=== PATIENT | male | born 1965 | race Hispanic/Latino ===

== ENCOUNTER 2018-05-20 18:13 | Emergency (ER) | payer BC, OTHER ==
[2018-05-20] MEDS ORDERED: TETANUS & DIPHTHERIA TOX,ADULT 0.5 ML VIAL ONE (19:31)
[2018-05-20] MEDS ORDERED: CLINDAMYCIN HCL 150 MG CAP ONE (20:11)
--- NOTE | 2018-05-20 20:34 | ER ---
Nurse's Notes [facility] Name: Marcelo Ramirez Age: 53 yrs Sex: Male : 1965 Arrival Date: 05/20/2018 Time: 18:17 Bed 27 Private MD: None, None Diagnosis: Laceration of extensor muscle, fascia and tendon of right middle finger at wrist and hand level-Infected Presentation: 05/20 19:04 Presenting complaint: Patient states: Patient hit a window one week ago and the aj1 swelling to his right hand has just gotten worse. Redness and swelling noted to right hand. Patient's states that it has been draining purulent drainage. Denies fever. Transition of care: patient was not received from another setting of care. Onset of symptoms was May 13, 2018. Risk Assessment: Do you want to hurt yourself or someone else? Patient reports no desire to harm self or others. Initial Sepsis Screen: Does the patient meet any 2 criteria? No. Patient's initial sepsis screen is negative. Does the patient have a suspected source of infection? No. Patient's initial sepsis screen is negative. Care prior to arrival: None. 19:04 Method Of Arrival: Ambulatory aj1 19:04 Acuity: BROOKE 3 aj1 Triage Assessment: 19:06 General: Appears in no apparent distress. uncomfortable, Behavior is calm, cooperative, aj1 appropriate for age. Pain: Complains of pain in right hand Pain currently is 7 out of 10 on a pain scale. Neuro: Level of Consciousness is awake, alert, obeys commands. Cardiovascular: Patient's skin is warm and dry. Respiratory: Airway is patent Respiratory effort is even, unlabored, Respiratory pattern is regular, symmetrical. Historical: - Allergies: 19:06 No Known Allergies; aj1 - Home Meds: 19:06 None [Active]; aj1 - PMHx: 19:06 COPD; aj1 - Immunization history:: Last tetanus immunization: unknown. - Social history:: Smoking status: Patient/guardian denies using tobacco. - Ebola Screening: : Patient denies travel to an Ebola-affected area in the 21 days before illness onset. Screenin:33 Abuse screen: Denies threats or abuse. Denies injuries from another. Nutritional rv screening: No deficits noted. Tuberculosis screening: No symptoms or risk factors identified. Fall Risk None identified. Assessment: 19:32 General: Appears in no apparent distress. comfortable, Behavior is calm, cooperative. rv Pain: Complains of pain in right hand. Neuro: Level of Consciousness is awake, alert, obeys commands, Oriented to person, place, time, situation. Cardiovascular: Capillary refill < 3 seconds. Respiratory: Airway is patent. GI: No signs and/or symptoms were reported involving the gastrointestinal system. : No signs and/or symptoms were reported regarding the genitourinary system. EENT: No signs and/or symptoms were reported regarding the EENT system. Derm: Wound noted right hand. Musculoskeletal: No signs and/or symptoms reported regarding the musculoskeletal system. 21:03 Reassessment: AWAITING CD COPY OF XRAY. rv Vital Signs: 19:06 BP 109 / 80; Pulse 103; Resp 20; Temp 99.0(TE); Pulse Ox 96% on R/A; Weight 83.91 kg aj1 (R); Height 5 ft. 7 in. (170.18 cm) (R); Pain 7/10; 20:58 BP 124 / 81; Pulse 74; Pulse Ox 97% on R/A; rv 19:06 Body Mass Index 28.97 (83.91 kg, 170.18 cm) aj1 ED Course: 18:17 Patient arrived in ED. sb2 18:18 None, None is Private Physician. sb2 19:06 Triage completed. aj1 19:06 Arm band placed on Patient placed in an exam room. aj1 19:11 Sam Camacho PA is PHCP. cp 19:11 Peng Chavez MD is Attending Physician. cp 19:33 Patient has correct armband on for positive identification. Bed in low position. Call rv light in reach. Side rails up X 1. Adult w/ patient. Pulse ox on. NIBP on. 20:12 XRAY Hand RIGHT 3 View Sent. rv 20:12 Wound Culture Sent. rv 20:13 Awaiting for x-ray. rv 20:31 XRAY Hand RIGHT 3 View In Process Unspecified. EDMS 20:33 Pb Young MD is Referral Physician. cp 20:59 Wound care: to open wound located on right hand was cleaned with with BENNIE HEX4, rv irrigated with normal saline, dressed with Patient tolerated well. 21:03 No provider procedures requiring assistance completed. Patient did not have IV access rv during this emergency room visit. 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 Exp: rv 06/27/2020. Lot #: [id number]. } Route: IM; Site: right deltoid; 21:06 Follow up: Response: No adverse reaction rv 20:12 Drug: Clindamycin 300 mg Route: PO; rv 21:06 Follow up: Response: Medication administered at discharge. rv Outcome: 20:34 Discharge ordered by MD. cp 21:03 Discharged to home ambulatory. rv 21:03 Condition: good 21:03 Discharge instructions given to patient, Instructed on discharge instructions, follow up and referral plans. medication usage, Prescriptions given X 1. 21:06 Patient left the ED. rv Addendum: 05/24/2018 09:55 Addendum: Culture Results: Positive wound culture. Phone call Attempt #1 Spoke to ferdinand Robertson at [phone] Prescription called-in to pharmacy of choice. Bactrim DS PO BID x 1-0 days at [facility]. Signatures: Dispatcher [employer] EDMS Pratima Weiss RN RN aj1 Sam Camacho PA PA Iveht Landry, RN RN Chandrika Gibbs sb2 Adán Rand RN RN rv
--- NOTE | 2018-05-20 20:34 | EDPHYS ---
Physician Documentation [facility] Name: Marcelo Ramirez Age: 53 yrs Sex: Male : 1965 Arrival Date: 05/20/2018 Time: 18:17 Bed 27 Private MD: None, None ED Physician Peng Chavez HPI: 05/20 19:22 This 53 yrs old Male presents to ER via Ambulatory with complaints of Wound On cp Hand-Won't Heal. 19:22 The patient or guardian reports a laceration, swelling, tenderness, erythema. cp 19:22 The complaints affect the MCP of right middle finger. Context: resulted from punching cp window. Onset: The symptoms/episode began/occurred 1 week(s) ago. Associated signs and symptoms: Pertinent negatives: cyanosis distally, decreased sensation distally, fever. Historical: - Allergies: 19:06 No Known Allergies; aj1 - Home Meds: 19:06 None [Active]; aj1 - PMHx: 19:06 COPD; aj1 - Immunization history:: Last tetanus immunization: unknown. - Social history:: Smoking status: Patient/guardian denies using tobacco. - Ebola Screening: : Patient denies travel to an Ebola-affected area in the 21 days before illness onset. ROS: 19:30 Constitutional: Negative for body aches, chills, fever, poor PO intake. cp 19:30 Eyes: Negative for injury, pain, redness, and discharge. cp 19:30 Cardiovascular: Negative for chest pain, palpitations. 19:30 Respiratory: Negative for cough, shortness of breath, wheezing. 19:30 Abdomen/GI: Negative for abdominal pain, nausea, vomiting, and diarrhea, black/tarry stool, rectal bleeding. 19:30 Skin: Positive for erythema, laceration(s), swelling, of the MCP of right middle finger. 19:30 Neuro: Negative for numbness, tingling. 19:30 All other systems are negative. Exam: 19:35 Constitutional: The patient appears in no acute distress, alert, awake, non-toxic, well cp developed, well nourished. 19:35 Head/Face: Normocephalic, atraumatic. cp 19:35 Eyes: Periorbital structures: appear normal, Conjunctiva: normal, no exudate, no injection, Lids and lashes: appear normal, bilaterally. 19:35 ENT: External ear(s): are unremarkable, Nose: is normal, Mouth: is normal, Posterior pharynx: is normal, airway is patent. 19:35 Chest/axilla: Inspection: normal. 19:35 Cardiovascular: Rate: tachycardic, Rhythm: regular. 19:35 Respiratory: the patient does not display signs of respiratory distress, Respirations: normal, no use of accessory muscles, no retractions, no splinting, no tachypnea. 19:35 Abdomen/GI: Inspection: abdomen appears normal. 19:35 Musculoskeletal/extremity: Perfusion: the extremity is normally perfused throughout, Sensation intact. Tendon exam: postive for patient unable to fully extend middle digit of right hand. 19:35 Skin: injury, laceration(s), the wound is approximately 2 cm(s), of the MCP of right middle finger, that can be described as linear, without bleeding, mild erythema, mild swelling. Vital Signs: 19:06 BP 109 / 80; Pulse 103; Resp 20; Temp 99.0(TE); Pulse Ox 96% on R/A; Weight 83.91 kg aj1 (R); Height 5 ft. 7 in. (170.18 cm) (R); Pain 7/10; 20:58 BP 124 / 81; Pulse 74; Pulse Ox 97% on R/A; rv 19:06 Body Mass Index 28.97 (83.91 kg, 170.18 cm) aj1 MDM: 19:11 Patient medically screened. cp 19:30 Differential diagnosis: dislocation, open fracture, closed fracture, tendon rupture, cp cellulitis, abscess. 20:33 Data reviewed: vital signs, nurses notes, radiologic studies, plain films, and as a cp result, I will discharge patient. 20:33 Test interpretation: by ED physician or midlevel provider: plain radiologic studies. cp Counseling: I had a detailed discussion with the patient and/or guardian regarding: the historical points, exam findings, and any diagnostic results supporting the discharge/admit diagnosis, the need for outpatient follow up, a hand specialist, to return to the emergency department if symptoms worsen or persist or if there are any questions or concerns that arise at home. 05/20 19:57 Order name: Wound Culture cp 05/20 19:23 Order name: XRAY Hand RIGHT 3 View; Complete Time: 20:57 cp 05/20 20:57 Interpretation: Report reviewed. 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 Exp: rv 06/27/2020. Lot #: [id number]. } Route: IM; Site: right deltoid; 21:06 Follow up: Response: No adverse reaction 20:12 Drug: Clindamycin 300 mg Route: PO; rv 21:06 Follow up: Response: Medication administered at discharge. Disposition: 05/21 04:38 Co-signature as Attending Physician, Peng Chavez MD. Disposition: 05/20/18 20:34 Discharged to Home. Impression: Laceration of extensor muscle, fascia and tendon of right middle finger at wrist and hand level - Infected. - Condition is Stable. - Discharge Instructions: Cellulitis, Adult, Laceration Care, Adult, Nonsutured Laceration Care. - Prescriptions for Clindamycin HCl 300 mg Oral Capsule - take 1 capsule by ORAL route every 6 hours for 10 days; 40 capsule. - Medication Reconciliation Form, Thank You Letter, Antibiotic Education, Prescription Opioid Use form. - Follow up: Pb Young MD; When: 1 - 2 days; Reason: Wound Recheck. - Problem is new. - Symptoms have improved. Signatures: Dispatcher [employer] EDIL Pratima Weiss RN RN aj1 Sam Camacho PA PA Peng Chavez MD MD Adán Rand RN RN rv Corrections: (The following items were deleted from the chart) 05/20 21:06 20:34 05/20/2018 20:34 Discharged to Home. Impression: Laceration of extensor muscle, rv fascia and tendon of right middle finger at wrist and hand level - Infected. Condition is Stable. Forms are Medication Reconciliation Form, Thank You Letter, Antibiotic Education, Prescription Opioid Use. Follow up: Pb Young; When: 1 - 2 days; Reason: Wound Recheck. Problem is new. Symptoms have improved. cp
--- NOTE | 2018-05-20 20:53 | RAD REPORT ---
EXAM DESCRIPTION: RAD - Hand Right 3 View - 05/20/2018 8:31 pm CLINICAL HISTORY: Hand trauma 1 week earlier, increasing swelling, draining wound COMPARISON: None. FINDINGS: No fracture is identified. There is no dislocation or periosteal reaction noted. Soft tis clifford wound is evident dorsum of the hand at the MCP joint spur. No foreign body. No suspicious air in the soft tissues. IMPRESSION: No acute bone or joint finding. No foreign body.
[2018-05-20 21:30] VITALS: TEMP 99
[2018-05-20 21:31] VITALS: BP 124/81; O2SAT 97
== END 2018-05-20 21:06 | disposition home or self-care (01) ==
LOC: ER 18:13
DX: S66.322A Laceration of extensor muscle, fascia and tendon of right middle finger at wrist and hand level, initial encounter (principal); L08.9 Local infection of the skin and subcutaneous tissue, unspecified; J44.9 Chronic obstructive pulmonary disease, unspecified; Z23 Encounter for immunization
CPT/HCPCS: 87070; 87077; 87186; 87205; 90714; 99284

== ENCOUNTER 2018-10-01 02:40 | Emergency (ER) | payer BC ==
--- OUTSIDE RECORDS SUMMARY | 2018-10-01 02:42 | XMS REPORT | Clinical Summary ---
:1965 Author Organization [facility] Address [address] [place] [address] Care Team Providers Name Role Phone Asked, No Pcp Primary Care Provider Unavailable Allergies No Known Allergies Medications No known medications Active Problems Not on file Encounters Date Type Specialty Care Team Description 05/29/2018 Office Visit Orthopedic Surgery [place] [facility], Laceration of hand MD involving extensor tendon, unspecified laterality, sequela (Primary Dx) after 09/30/2017 Social History Tobacco Use Types Packs/Day Years Used Date Never Assessed Sex Assigned at Date Recorded Not on file Job Start Date Occupation Industry Not on file Not on file Not on file Travel History Travel Start Travel End No recent travel history available. Last Filed Vital Signs Not on file Plan of Treatment Health Maintenance Due Date Last Done Comments COLON CANCER SCREENING 02/24/2016 SHINGLES VACCINES (1 of 2) 02/24/2016 INFLUENZA VACCINE 05/09/2018 Results Not on fileafter 09/30/2017 Insurance Payer Benefit Plan / Group Subscriber ID Type Phone Address BCBS BCBS CHOICE PPO/F[employer]ERAL EMPL PPO xxxxxxxxxxxx PPO Advance Directives Patient has advance care planning documents on file. For more information, please contact:[facility] [place] [address]
[2018-10-01] MEDS ORDERED: IBUPROFEN 400 MG TAB ONE (03:27)
[2018-10-01] MEDS ORDERED: IBUPROFEN 200 MG TAB PO ONE (03:28)
[2018-10-01] MEDS ORDERED: NA CHLORIDE 0.9% 1,000 ML ONE (03:28)
[2018-10-01 03:29] LABS: Absolute Lymphocytes (CBC) 1.2 K/uL (0.7-4.9); Absolute Monocytes 1.2 K/uL (0.1-1.3); Absolute Neutrophil 15.9 K/uL (1.8-8.0); Basophils % 0.2 % (0-1.3); Hematocrit 46.5 % (39.6-49.0); Lymphocytes % 6.4 % (15.3-44.8); Monocytes % 6.5 % (3.3-12.3); RBC Red Blood Cell Count 5.19 M/uL (4.33-5.43)
[2018-10-01 03:37] LABS: Potassium 3.8 mmol/L (3.5-5.1)
[2018-10-01 03:48] LABS: Blood Morphology Comment NOT SEEN (NOT SEEN); Platelet Estimate ADEQ; Urine White Blood Cell Casts OK
--- NOTE | 2018-10-01 04:44 | ER ---
Nurse's Notes [facility] Name: Marcelo Ramirez Age: 53 yrs Sex: Male : 1965 Arrival Date: 10/01/2018 Time: 02:44 Bed 16 Private MD: Diagnosis: Acute pharyngitis. Leukocytosis Presentation: 10/01 02:56 Presenting complaint: Patient states: having flu like symptoms body ache, sore throat, rr5 headache, started last Monday but it got worsen yesterday. no cough, no nausea and vomting. Transition of care: patient was not received from another setting of care. Onset of symptoms was September 29, 2018. Risk Assessment: Do you want to hurt yourself or someone else? Patient reports no desire to harm self or others. Initial Sepsis Screen: Does the patient meet any 2 criteria? No. Patient's initial sepsis screen is negative. Does the patient have a suspected source of infection? No. Patient's initial sepsis screen is negative. Care prior to arrival: Medication(s) given: dayquil and cold and flu medication. 02:56 Method Of Arrival: Ambulatory rr5 02:56 Acuity: BROOKE 3 rr5 Triage Assessment: 03:02 General: Appears in no apparent distress. uncomfortable, Behavior is calm, cooperative, rr5 appropriate for age. Pain: Complains of pain in head, throat and body Pain does not radiate. Pain currently is 8 out of 10 on a pain scale. Quality of pain is described as aching, Pain began gradually, Is intermittent. EENT: Throat is reddened. Neuro: Level of Consciousness is awake, alert, obeys commands, Oriented to person, place, time, situation. Cardiovascular: Capillary refill < 3 seconds Patient's skin is warm and dry. Rhythm is sinus tachycardia. Respiratory: Airway is patent Respiratory effort is even, unlabored, Respiratory pattern is regular, symmetrical, hoarseness of voice noted. GI: No signs and/or symptoms were reported involving the gastrointestinal system. : No signs and/or symptoms were reported regarding the genitourinary system. Derm: Skin is intact, Skin temperature is warm. Musculoskeletal: Reports pain in head, throat,body. Historical: - Allergies: 03:00 No Known Allergies; rr5 - Home Meds: 03:00 None [Active]; rr5 - PMHx: 03:00 COPD; rr5 - PSHx: 03:00 None; rr5 - Immunization history:: Adult Immunizations up to date, Flu vaccine is not up to date. - Social history:: Smoking status: Patient/guardian denies using tobacco, Patient uses alcohol, Patient/guardian denies using street drugs. - Ebola Screening: : Patient negative for fever greater than or equal to 101.5 degrees Fahrenheit, and additional compatible Ebola Virus Disease symptoms Patient denies exposure to infectious person Patient denies travel to an Ebola-affected area in the 21 days before illness onset. Screenin:01 Abuse screen: Denies threats or abuse. Denies injuries from another. Nutritional rr5 screening: No deficits noted. Tuberculosis screening: No symptoms or risk factors identified. 03:01 Fall Risk IV access (20 points). Total Leigh Fall Scale indicates No Risk (0-24 pts). rr5 Assessment: 03:15 General: see triage assessment. rr5 04:30 Reassessment: Patient appears in no apparent distress at this time. Patient and/or rr5 family updated on plan of care and expected duration. Pain level reassessed. no complaints made. asleep on bed Patient states symptoms have improved. 05:00 Reassessment: Patient appears in no apparent distress at this time. Patient and/or rr5 family updated on plan of care and expected duration. Pain level reassessed. discharge instruction and prescription given and explained without complaints made. Patient states feeling better. Patient states symptoms have improved. Vital Signs: 02:59 BP 143 / 91; Pulse 108; Resp 20; Temp 98.4; Pulse Ox 98% ; Weight 89.36 kg; Height 5 rr5 ft. 7 in. (170.18 cm); Pain 8/10; 03:30 BP 145 / 89; Pulse 99; Resp 18; Pulse Ox 99% ; rr5 04:28 BP 134 / 85; Pulse 79; Resp 18; Temp 99.6; Pulse Ox 99% ; rr5 02:59 Body Mass Index 30.85 (89.36 kg, 170.18 cm) rr5 ED Course: 02:44 Patient arrived in ED. am2 02:48 Shamir Gutierrez MD is Attending Physician. pkl 02:50 Nata Domingo is Primary Nurse. cc3 02:59 Triage completed. rr5 03:01 Arm band placed on. rr5 03:15 Patient has correct armband on for positive identification. Bed in low position. Call rr5 light in reach. Side rails up X 1. 03:15 Pulse ox on. NIBP on. rr5 03:15 Inserted saline lock: 20 gauge in left forearm, using aseptic technique. Blood rr5 collected. 03:55 Vinicio Dos Santos, RN is Primary Nurse. rr5 05:02 No provider procedures requiring assistance completed. rr5 05:17 IV discontinued, intact, bleeding controlled, No redness/swelling at site. Pressure rr5 dressing applied. Administered Medications: 03:15 Drug: Motrin 600 mg Route: PO; rr5 04:31 Follow up: Response: No adverse reaction rr5 03:21 Drug: NS 0.9% 1000 ml Route: IV; Rate: 1000 ml; Site: left forearm; rr5 04:30 Follow up: Response: No adverse reaction; IV Status: Completed infusion; IV Intake: rr5 1000ml 04:45 Drug: Rocephin - (cefTRIAXone) 1 grams Route: IVPB; Infused Over: 30 mins; Site: left rr5 forearm; 05:16 Follow up: Response: No adverse reaction; IV Status: Completed infusion rr5 Intake: 04:30 IV: 1000ml; Total: 1000ml. rr5 Outcome: 04:43 Discharge ordered by . pkcarmita 05:17 Discharged to home ambulatory. rr5 05:17 Condition: stable 05:17 Discharge instructions given to patient, Instructed on discharge instructions, follow up and referral plans. medication usage, Demonstrated understanding of instructions, follow-up care, medications, Prescriptions given X 1. 05:18 Patient left the ED. rr5 Signatures: Shamir Gutierrez MD MD pkPhuong Stephens am2 Nata Domingo 3 Vinicio Dos Santos, RN RN rr5
--- NOTE | 2018-10-01 04:45 | EDPHYS ---
Physician Documentation [facility] Name: Marcelo Ramirez Age: 53 yrs Sex: Male : 1965 Arrival Date: 10/01/2018 Time: 02:44 Bed 16 Private MD: ED Physician Shamir Gutierrez HPI: 10/01 03:08 This 53 yrs old Male presents to ER via Ambulatory with complaints of Flu pkl Symptoms. 03:08 Onset: The symptoms/episode began/occurred 2 day(s) ago, and became worse today. pkl Patient has fever, headache, sore throat and bodyache. Historical: - Allergies: 03:00 No Known Allergies; rr5 - Home Meds: 03:00 None [Active]; rr5 - PMHx: 03:00 COPD; rr5 - PSHx: 03:00 None; rr5 - Immunization history:: Adult Immunizations up to date, Flu vaccine is not up to date. - Social history:: Smoking status: Patient/guardian denies using tobacco, Patient uses alcohol, Patient/guardian denies using street drugs. - Ebola Screening: : Patient negative for fever greater than or equal to 101.5 degrees Fahrenheit, and additional compatible Ebola Virus Disease symptoms Patient denies exposure to infectious person Patient denies travel to an Ebola-affected area in the 21 days before illness onset. ROS: 03:08 Eyes: Negative for injury, pain, redness, and discharge. pkl 03:08 ENT: Positive for sore throat. 03:08 Neck: Negative for stiffness. 03:08 Cardiovascular: Negative for chest pain. 03:08 Respiratory: Negative for cough, shortness of breath. 03:08 Abdomen/GI: Negative for abdominal pain, nausea, vomiting, and diarrhea. 03:08 Back: Negative for 03:08 : Negative for urinary symptoms. 03:08 MS/extremity: Negative for acute changes. 03:08 Skin: Negative for rash. 03:08 Neuro: Negative for altered mental status, loss of consciousness. Exam: 03:08 Head/Face: Normocephalic, atraumatic. Eyes: Pupils equal round and reactive to light, pkl extra-ocular motions intact. Lids and lashes normal. Conjunctiva and sclera are non-icteric and not injected. Cornea within normal limits. Periorbital areas with no swelling, redness, or edema. 03:08 ENT: Posterior pharynx: erythema, that is mild. 03:08 Neck: Exam negative for nuchal rigidity. 03:08 Chest/axilla: Exam negative for acute changes. 03:08 Cardiovascular: Rate: tachycardic, actual rate is 108 bpm, Rhythm: regular. 03:08 Respiratory: the patient does not display signs of respiratory distress, Respirations: normal, Breath sounds: are clear throughout. 03:08 Abdomen/GI: Bowel sounds: normal, Palpation: abdomen is soft and non-tender, in all quadrants. 03:08 Back: Exam negative for acute changes. 03:08 : Exam negative for acute changes. 03:08 Musculoskeletal/extremity: Exam is negative for acute changes. 03:08 Skin: Exam negative for rash. 03:08 Neuro: Orientation: is normal, Mentation: is normal, Cranial nerves: grossly normal, Motor: is normal. Vital Signs: 02:59 BP 143 / 91; Pulse 108; Resp 20; Temp 98.4; Pulse Ox 98% ; Weight 89.36 kg; Height 5 rr5 ft. 7 in. (170.18 cm); Pain 8/10; 03:30 BP 145 / 89; Pulse 99; Resp 18; Pulse Ox 99% ; rr5 04:28 BP 134 / 85; Pulse 79; Resp 18; Temp 99.6; Pulse Ox 99% ; rr5 02:59 Body Mass Index 30.85 (89.36 kg, 170.18 cm) rr5 MDM: 02:48 Patient medically screened. pkl 04:41 Data reviewed: vital signs, nurses notes, lab test result(s). pkl 10/01 03:06 Order name: CBC with Diff; Complete Time: 04:27 pkl 10/01 03:06 Order name: Chem 7; Complete Time: 03:42 pkl 10/01 03:06 Order name: Flu; Complete Time: 04:27 pkl 10/01 03:06 Order name: Strep; Complete Time: 04:27 pkl 10/01 03:46 Order name: Throat Culture EDMS 10/01 03:48 Order name: CBC Smear Scan; Complete Time: 04:28 EDMS Administered Medications: 03:15 Drug: Motrin 600 mg Route: PO; rr5 04:31 Follow up: Response: No adverse reaction rr5 03:21 Drug: NS 0.9% 1000 ml Route: IV; Rate: 1000 ml; Site: left forearm; rr5 04:30 Follow up: Response: No adverse reaction; IV Status: Completed infusion; IV Intake: rr5 1000ml 04:45 Drug: Rocephin - (cefTRIAXone) 1 grams Route: IVPB; Infused Over: 30 mins; Site: left rr5 forearm; 05:16 Follow up: Response: No adverse reaction; IV Status: Completed infusion rr5 Disposition: 10/01/18 04:43 Discharged to Home. Impression: Acute pharyngitis. Leukocytosis. - Condition is Stable. - Prescriptions for Augmentin 875- 125 mg Oral Tablet - take 1 tablet by ORAL route every 12 hours for 7 days; 14 tablet. - Medication Reconciliation Form, Thank You Letter, Antibiotic Education, Prescription Opioid Use form. - Follow up: Private Physician; When: 2 - 3 days; Reason: Re-evaluation by your physician. - Problem is new. - Symptoms have improved. Signatures: Dispatcher [employer] EDNE Shamir Gutierrez MD MD pkl Sharmin Watson RN RN Vinicio Dos Santos RN RN rr5 Corrections: (The following items were deleted from the chart) 05:18 04:43 10/01/2018 04:43 Discharged to Home. Impression: Acute pharyngitis. Leukocytosis. rr5 Condition is Stable. Forms are Medication Reconciliation Form, Thank You Letter, Antibiotic Education, Prescription Opioid Use. Follow up: Private Physician; When: 2 - 3 days; Reason: Re-evaluation by your physician. Problem is new. Symptoms have improved. pkl
[2018-10-01] MEDS ORDERED: CEFTRIAXONE/SWI 1gm 1 GM/10 ML SYR ONE (04:50)
[2018-10-01 05:30] VITALS: O2SAT 99
[2018-10-01 05:31] VITALS: BP 134/85; TEMP 99.6
== END 2018-10-01 05:18 | disposition home or self-care (01) ==
LOC: ER 02:40
DX: J02.9 Acute pharyngitis, unspecified (principal); D72.829 Elevated white blood cell count, unspecified
CPT/HCPCS: 36415; 80048; 85025; 87070; 87081; 87804; 96361; 96365; 99284; J0696; J7030

== ENCOUNTER 2021-04-01 16:30 | Emergency (ER) | payer BC, OTHER ==
--- NOTE | 2021-04-01 19:28 | ER ---
Nurse's Notes [facility] Name: Marcelo Ramirez Age: 56 yrs Sex: Male : 1965 Arrival Date: 04/01/2021 Time: 16:35 Bed 12 Private MD: Diagnosis: Acute serous otitis media Presentation: 04/01 16:43 Chief complaint: Patient states: "My left ear is all swollen and leaking fluid and I jd3 get this sharp pains.". Coronavirus screen: At this time, the client does not indicate any symptoms associated with coronavirus-19. Ebola Screen: Patient negative for fever greater than or equal to 101.5 degrees Fahrenheit, and additional compatible Ebola Virus Disease symptoms. Initial Sepsis Screen: Does the patient meet any 2 criteria? No. Patient's initial sepsis screen is negative. Does the patient have a suspected source of infection? No. Patient's initial sepsis screen is negative. Risk Assessment: Do you want to hurt yourself or someone else? Patient reports no desire to harm self or others. Onset of symptoms was March 29, 2021. 16:43 Method Of Arrival: Ambulatory jd3 16:43 Acuity: BROOKE 4 jd3 Historical: - Allergies: 16:45 No Known Allergies; jd3 - Home Meds: 16:45 None [Active]; jd3 - PMHx: 16:45 COPD; jd3 - PSHx: 16:45 None; jd3 - Immunization history:: Adult Immunizations unknown, Client reports having NOT received the Covid vaccine. - Social history:: Smoking status: Patient/guardian denies using tobacco, the patient reports quitting approximately 9 years ago. Screenin:48 Abuse screen: Denies threats or abuse. Denies injuries from another. Nutritional ss screening: No deficits noted. Tuberculosis screening: Never had TB. Fall Risk None identified. Assessment: 18:48 General: Appears in no apparent distress. comfortable, Behavior is calm, cooperative, ss Denies fever, feeling ill, fatigue, chills. Pain: Complains of pain in left ear Pain currently is 5 out of 10 on a pain scale. at worst was 8 out of 10 on a pain scale. Quality of pain is described as sharp, Pain began 4 days ago Is episodic. Neuro: Level of Consciousness is awake, alert, obeys commands, Oriented to person, place, time, situation, Speech is normal. Cardiovascular: Capillary refill < 3 seconds is brisk in bilateral fingers Patient's skin is warm and dry. Respiratory: Airway is patent Respiratory effort is even, unlabored, Respiratory pattern is regular, symmetrical. GI: Patient currently denies diarrhea, nausea, vomiting. EENT: Throat is clear. Derm: Skin is intact, is healthy with good turgor, Skin is dry, Skin is pink, warm \\T\\ dry. normal. Musculoskeletal: Circulation, motion, and sensation intact. Range of motion: intact in all extremities, Swelling absent. Vital Signs: 16:45 BP 141 / 100; Pulse 89; Resp 16 S; Temp 97.8(TE); Pulse Ox 99% on R/A; Weight 83.91 kg jd3 (R); Height 5 ft. 7 in. (170.18 cm) (R); Pain 8/10; 16:45 Body Mass Index 28.97 (83.91 kg, 170.18 cm) j ED Course: 16:35 Patient arrived in ED. mr 16:44 Triage completed. jd3 16:45 Arm band placed on. jd3 18:47 Suzette Coreas, RN is Primary Nurse. ss 18:48 Patient has correct armband on for positive identification. Bed in low position. Call ss light in reach. Warm blanket given. 18:49 Lauro Markham PA is PHCP. chayito 18:49 Kristi Baldwin MD is Attending Physician. [facility] 19:37 No provider procedures requiring assistance completed. Patient did not have IV access em during this emergency room visit. Administered Medications: 19:30 Drug: Rocephin (cefTRIAXone) 1 grams Route: IM; Site: left gluteus; em 19:38 Follow up: Response: No adverse reaction em 19:30 Drug: Ibuprofen 800 mg Route: PO; em 19:38 Follow up: Response: No adverse reaction em Outcome: 19:27 Discharge ordered by . jmm 19:37 Discharged to home ambulatory. em 19:37 Condition: good 19:37 Discharge instructions given to patient, Instructed on discharge instructions, follow up and referral plans. medication usage, Demonstrated understanding of instructions, follow-up care, medications, Prescriptions given X 3. 19:38 Patient left the ED. em Signatures: MicLauro leung PA PA jmm Rivera, Mary mr SantiagoTyrone, RN Suzette Durand RN RN ss Davies, Jonathon, RN RN jd3 Corrections: (The following items were deleted from the chart) 16:47 16:45 Pulse 89bpm; Resp 16bpm; Spontaneous; Pulse Ox 99% RA; Temp 97.8F Temporal; 83.91 jd3 kg Reported; Height 5 ft. 7 in. Reported; BMI: 28.9; Pain 8/10; jd3
--- NOTE | 2021-04-01 19:28 | EDPHYS ---
Physician Documentation [facility] Name: Marcelo Ramirez Age: 56 yrs Sex: Male : 1965 Arrival Date: 04/01/2021 Time: 16:35 Bed 12 Private MD: ED Physician Kristi Baldwin HPI: 04/01 19:17 This 56 yrs old Male presents to ER via Ambulatory with complaints of Ear Pain.jmm 19:17 The patient presents with pain. Onset: The symptoms/episode began/occurred gradually, 4 jmm day(s) ago. Modifying factors: The symptoms are alleviated by nothing, the symptoms are aggravated by nothing. Associated signs and symptoms: Pertinent negatives: fever, sob. This is a 56 year old male with a history of copd that presents to the ED with complaints of left ear pain. Denies fever. Historical: - Allergies: 16:45 No Known Allergies; jd3 - Home Meds: 16:45 None [Active]; jd3 - PMHx: 16:45 COPD; jd3 - PSHx: 16:45 None; jd3 - Immunization history:: Adult Immunizations unknown, Client reports having NOT received the Covid vaccine. - Social history:: Smoking status: Patient/guardian denies using tobacco, the patient reports quitting approximately 9 years ago. ROS: 19:17 Constitutional: Negative for fever, chills, and weight loss. jmm 19:17 Neck: Negative for injury, pain, and swelling, Cardiovascular: Negative for chest pain, palpitations, and edema, Respiratory: Negative for shortness of breath, cough, wheezing, and pleuritic chest pain, Abdomen/GI: Negative for abdominal pain, nausea, vomiting, diarrhea, and constipation, Back: Negative for injury and pain, Skin: Negative for injury, rash, and discoloration, Neuro: Negative for headache, weakness, numbness, tingling, and seizure, Psych: Negative for depression, anxiety, suicide ideation, homicidal ideation, and hallucinations. 19:17 ENT: Positive for ear pain. 19:17 All other systems are negative. Exam: 19:17 Constitutional: This is a well developed, well nourished patient who is awake, alert, jmm and in no acute distress. Head/Face: atraumatic. Eyes: EOMI, no conjunctival erythema appreciated 19:17 Neck: Trachea midline, Supple Chest/axilla: Normal chest wall appearance and motion. Cardiovascular: Regular rate and rhythm. No edema appreciated Respiratory: Normal respirations, no respiratory distress appreciated Abdomen/GI: Non distended, soft Back: Normal ROM Skin: General appearance color normal MS/ Extremity: Moves all extremities, no obvious deformities appreciated, no edema noted to the lower extremities Neuro: Awake and alert, normal gait Psych: Behavior is normal, Mood is normal, Patient is cooperative and pleasant 19:17 ENT: TM's: erythema, that is mild, on the left. Vital Signs: 16:45 BP 141 / 100; Pulse 89; Resp 16 S; Temp 97.8(TE); Pulse Ox 99% on R/A; Weight 83.91 kg jd3 (R); Height 5 ft. 7 in. (170.18 cm) (R); Pain 8/10; 16:45 Body Mass Index 28.97 (83.91 kg, 170.18 cm) jd3 MDM: 18:51 Patient medically screened. chayito 19:26 Data reviewed: vital signs, nurses notes. Counseling: I had a detailed discussion with chayito the patient and/or guardian regarding: the historical points, exam findings, and any diagnostic results supporting the discharge/admit diagnosis, the need for outpatient follow up, to return to the emergency department if symptoms worsen or persist or if there are any questions or concerns that arise at home. ED course: Patient is alert and non toxic in appearance in the ED. I do not suspect mastoidits. Patient advised to follow up with pcp and otherwise given strict return precautions. patient understood and agrees with the plan of care. . Administered Medications: 19:30 Drug: Rocephin (cefTRIAXone) 1 grams Route: IM; Site: left gluteus; em 19:38 Follow up: Response: No adverse reaction em 19:30 Drug: Ibuprofen 800 mg Route: PO; em 19:38 Follow up: Response: No adverse reaction em Disposition: 04/01/21 19:27 Discharged to Home. Impression: Acute serous otitis media. - Condition is Stable. - Discharge Instructions: Otitis Media, Adult. - Prescriptions for Augmentin 875- 125 mg Oral Tablet - take 1 tablet by ORAL route every 12 hours for 10 days; 20 tablet. Ibuprofen 800 mg Oral Tablet - take 1 tablet by ORAL route every 8 hours As needed take with food; 30 tablet. orphenadrine citrate 100 mg Oral Tablet Sustained Release - take 1 tablet by ORAL route 2 times per day As needed; 20 tablet. - Medication Reconciliation Form, Thank You Letter, Antibiotic Education, Prescription Opioid Use form. - Follow up: Private Physician; When: 2 - 3 days; Reason: Recheck today's complaints, Continuance of care, Re-evaluation by your physician. Signatures: Lauro Markham PA PA jmm Munoz, Edgar, TIAGO RN Imtiaz Martinez RN RN jd3 Corrections: (The following items were deleted from the chart) 19:38 19:27 04/01/2021 19:27 Discharged to Home. Impression: Acute serous otitis media. em Condition is Stable. Forms are Medication Reconciliation Form, Thank You Letter, Antibiotic Education, Prescription Opioid Use. Follow up: Private Physician; When: 2 - 3 days; Reason: Recheck today's complaints, Continuance of care, Re-evaluation by your physician. chayito
[2021-04-01 19:45] VITALS: BP 141/100; TEMP 97.8; O2SAT 99
[2021-04-01] MEDS ORDERED: LIDOCAINE 1% MPF 2 ML AMPULE ONE (19:47)
[2021-04-01] MEDS ORDERED: IBUPROFEN 400 MG TAB ONE (19:47)
[2021-04-01] MEDS ORDERED: CEFTRIAXONE 1000 MG/VIAL ONE (19:47)
== END 2021-04-01 19:38 | disposition home or self-care (01) ==
LOC: ER 16:30
DX: H65.02 Acute serous otitis media, left ear (principal)

== ENCOUNTER 2021-08-28 11:43 | Emergency (ER) | payer OTHER ==
--- OUTSIDE RECORDS SUMMARY | 2021-08-28 11:45 | XMS REPORT | Continuity of Care Document ---
:1965 Author Organization [facility] t Address [address] [place] [address] Dr. Kirkland [address] [place] [id number] Care Team Providers Name Role Phone DIAZ BANSAL Attending Clinician Unavailable Problems This patient has no known problems. Allergies, Adverse Reactions, Alerts Allergy Allergy Status Severity Reaction(s) Onset Inactive Treating Comm ents Source Name Type Date Date Clinician NO KNOWN Drug Active [facility] ALLERGIE Class [facility] Medications This patient has no known medications. Procedures This patient has no known procedures. Encounters Start End Encounter Admission Attending Care Care Encounter Source Date/Time Date/Time Type Type Clinicians Facility Department ID 2021-04-04 2021-04-04 Emergency X JACOBY BANSAL ERT [id number] [facility] 10:50:00 10:50:00 DIAZ [facility] Results This patient has no known results.
[2021-08-28 12:31] LABS: Absolute Lymphocytes (CBC) 1.8 K/uL (0.7-4.9); Basophils % 0.4 % (0-1.3); Hematocrit 43.1 % (39.6-49.0); Lymphocytes % 24.5 % (15.3-44.8); MPV 7.8 fL (7.6-11.3); RBC Red Blood Cell Count 4.83 M/uL (4.33-5.43)
[2021-08-28 12:34] LABS: Protime INR 0.91
--- NOTE | 2021-08-28 13:00 | RAD REPORT ---
EXAM DESCRIPTION: CT - Head Brain Wo Cont - 08/28/2021 12:47 pm CLINICAL HISTORY: Headache;Visual disturbances Headache, drowsiness, CVA symptomology COMPARISON: HEAD BRAIN W O CONTRAST dated 04/06/2009; HEAD BRAIN W O CONTRAST dated 08/08/2008 TECHNIQUE: All CT scans are performed using dose optimization technique as appropriate and may inclu de automated exposure control or mA/KV adjustment according to patient size. FINDINGS: No intracranial hemorrhage, hydrocephalus or extra-axial fluid collection.No areas of brai n edema or evidence of midline shift. The paranasal sinuses and mastoids are clear. The calvarium is intact. IMPRESSION: No acute intracranial abnormality.
--- NOTE | 2021-08-28 13:02 | RAD REPORT ---
EXAM DESCRIPTION: CT - Head angio - 08/28/2021 12:48 pm CLINICAL HISTORY: Dizziness;Headache Headache, drowsiness, CVA COMPARISON: Head Brain Wo Cont dated 08/28/2021; HEAD BRAIN W O CONTRAST dated 04/06/2009 TECHNIQUE: CT angiography of the head was performed with MIPs. All CT scans are performed using dose optimization technique as appropriate and may include automated exposure control or mA/KV adjustment according to patient size. FINDINGS: No evidence of aneurysm is detected. No flow-limiting stenosis or vascular malformation id entified. Antegrade flow is seen in the vertebral arteries. Right vertebral artery is dominant. The visualized dural venous sinuses are patent. IMPRESSION: No significant flow abnormality is detected.
--- NOTE | 2021-08-28 13:05 | RAD REPORT ---
EXAM DESCRIPTION: RAD - Chest Single View - 08/28/2021 1:01 pm CLINICAL HISTORY: HTN Chest pain. COMPARISON: CHEST SINGLE VIEW dated 12/14/2013; CHEST SINGLE VIEW dated 06/11/2011; CHEST PA AND LAT 2 V IEW dated 06/10/2011; CHEST SINGLE VIEW dated 01/25/2011 FINDINGS: Portable technique limits examination quality. The lungs are grossly clear. The heart is normal in size. No displaced fractures. IMPRESSION: No acute intrathoracic process suspected.
--- NOTE | 2021-08-28 13:05 | RAD REPORT ---
EXAM DESCRIPTION: CT - Neck Angio - 08/28/2021 12:48 pm CLINICAL HISTORY: headache, vision disturbance Headache, drowsiness, CVA symptomology COMPARISON: CT-ORBIT-W dated 11/09/2011; Chest Single View dated 08/28/2021 TECHNIQUE: CT angiography of the neck vessels was performed with MIPs. All CT scans are performed using dose optimization technique as appropriate and may include automated exposure control or mA/KV adjustment according to patient size. FINDINGS: A left aortic arch is identified with normal three vessel configuration of the great vesse ls. No significant flow abnormality is seen of the common carotid bilaterally. No significant stenosis is identified involving the cervical segments of both internal carotid arteri es. Normal flow is seen within both vertebral arteries. Right vertebral artery is dominant. IMPRESSION: No significant flow abnormality of the neck vessels is identified.
[2021-08-28 13:12] LABS: BUN Blood Urea Nitrogen 13 mg/dL (7-18); Bicarbonate 27 mmol/L (21-32); Glucose Level 105 mg/dL (74-106); Magnesium 1.9 mg/dL (1.8-2.4); Potassium 4.1 mmol/L (3.5-5.1); Sodium Level 140 mmol/L (136-145); Troponin (Emerg Dept Use Only) < 0.02 ng/mL (0.0-0.045)
[2021-08-28] MEDS ORDERED: NA CHLORIDE 0.9% 1,000 ML ONE (13:43)
[2021-08-28] MEDS ORDERED: MORPHINE 2 MG/ML SYR ONE (14:26)
[2021-08-28] MEDS ORDERED: ONDANSETRON 4 MG/2 ML VIAL ONE (14:26)
--- NOTE | 2021-08-28 14:53 | ER ---
Nurse's Notes [facility] Name: Marcelo Ramirez Age: 56 yrs Sex: Male : 1965 Arrival Date: 08/28/2021 Time: 11:45 Bed 16 Private MD: Diagnosis: Essential (primary) hypertension;Headache Presentation: 08/28 11:56 Chief complaint: Patient states: Pt began to feel weakness, intermittent blurred vg1 vision, headache yesterday. States feeling 'a little dizzy' and nausea today. States that vision 'feels like when you come out of a pool'. Denies vomiting or diarrhea. Coronavirus screen: Vaccine status: Patient reports being unvaccinated. Client denies travel out of the [place] in the last 14 days. Ebola Screen: Patient negative for fever greater than or equal to 101.5 degrees Fahrenheit, and additional compatible Ebola Virus Disease symptoms. Initial Sepsis Screen: Does the patient meet any 2 criteria? No. Patient's initial sepsis screen is negative. Does the patient have a suspected source of infection? No. Patient's initial sepsis screen is negative. Risk Assessment: Do you want to hurt yourself or someone else? Patient reports no desire to harm self or others. Onset of symptoms was August 27, 2021. 11:56 Method Of Arrival: Ambulatory vg1 11:56 Acuity: BROOKE 3 vg1 12:54 No acute neurological deficit is noted. Note Pt taken to ct via wheelchair. nad or jh6 change in status. Triage Assessment: 12:01 The onset of the patients symptoms was more than six hours ago. General: Appears in no vg1 apparent distress. comfortable, Behavior is calm, cooperative. Pain: Complains of pain in head Pain currently is 5 out of 10 on a pain scale. Pain began 1 day ago. Neuro: Level of Consciousness is awake, alert, obeys commands, Oriented to person, place, time, situation, [employer] are equal bilaterally Moves all extremities. Gait is steady, Speech is normal, Facial symmetry appears normal, Reports blurred vision dizziness, headache. 15:35 The onset of the patients symptoms was less than three hours ago. jh6 Historical: - Allergies: 12:01 No Known Allergies; vg1 - Home Meds: 12:01 None [Active]; vg1 - PMHx: 12:01 COPD; vg1 - PSHx: 12:01 None; vg1 - Immunization history:: Client reports having NOT received the Covid vaccine. - Social history:: Smoking status: Patient/guardian denies using tobacco. - Family history:: not pertinent. - Hospitalizations: : No recent hospitalization is reported. Screenin:53 Abuse screen: Denies threats or abuse. Nutritional screening: No deficits noted. jh6 Tuberculosis screening: No symptoms or risk factors identified. Fall Risk None identified. Assessment: 12:30 The patient is alert, and able to follow commands. The patient does not exhibit slurred jh6 or garbled speech. The patient is not exhibiting difficulty speaking. The patient does not exhibit difficulty understanding words. The patient is able to swallow own secretions with no drooling or need for suction. Patient tolerated one teaspoon of water. No drooling, immediate coughing, gurgling, or clearing of the throat was noted. The patient tolerated 90mL of water. No drooling, immediate coughing, gurgling, or clearing of the throat was noted. The patient passed the bedside swallow screening. Oral medications may be given as ordered. Contact Physician for further diet orders. 12:55 The patient has not been NPO before screening. The patient is currently on the jh6 following diet: regular. 12:56 The patient has not been NPO before screening. The patient is currently on the jh6 following diet: regular The patient is alert, and able to follow commands. The patient does not exhibit slurred or garbled speech. The patient is not exhibiting difficulty speaking. The patient does not exhibit difficulty understanding words. The patient is able to swallow own secretions with no drooling or need for suction. Patient tolerated one teaspoon of water. No drooling, immediate coughing, gurgling, or clearing of the throat was noted. The patient tolerated 90mL of water. No drooling, immediate coughing, gurgling, or clearing of the throat was noted. T-PA (Activase) Screening: Contraindications: Other: resolved s/s. 14:17 Reassessment: Patient and/or family updated on plan of care and expected duration. Pain jh6 level reassessed. pt states that he still has quispe advised md and meds ordered.. 14:46 Reassessment: Patient is alert, oriented x 3, equal unlabored respirations, skin 6 warm/dry/pink. Patient states feeling better. Patient states symptoms have improved. Vital Signs: 11:56 BP 150 / 99; Pulse 64; Resp 16; Temp 98.3; Pulse Ox 99% ; Weight 86.18 kg; Height 5 ft. vg1 7 in. (170.18 cm); Pain 5/10; 12:50 BP 144 / 90; Pulse 73; Resp 18; Pulse Ox 100% ; Pain 4/10; jh6 14:14 BP 160 / 100; Pulse 63; Resp 18; Pulse Ox 100% on R/A; Pain 4/10; jh6 14:46 BP 146 / 86; Pulse 74; Resp 17; Temp 97.8(O); Pulse Ox 100% on R/A; Pain 2/10; jh6 15:22 BP 144 / 84; Pulse 76; Resp 17; Pulse Ox 99% ; Pain 1/10; jh6 11:56 Body Mass Index 29.76 (86.18 kg, 170.18 cm) 1 Vitals: 12:10 Cardiac Rhythm Assessment Regular Sinus rhythm. [facility] NIH Stroke Scale Scores: 12:30 NIHSS Score: 1 [facility] ED Course: 11:45 Patient arrived in ED. ds1 11:56 Brennan Hicks MD is Attending Physician. rn 12:01 Triage completed. vg1 12:01 Nneka Kim, RN is Primary Nurse. sl2 12:01 Arm band placed on. vg1 12:20 Patient has correct armband on for positive identification. Call light in reach. Side [facility] rails up X 1. Adult w/ patient. 12:37 Basic Metabolic Panel Sent. 5 12:38 Basic Metabolic Panel Sent. 5 12:38 CBC with Diff Sent. 5 12:39 Magnesium Sent. 5 12:39 Troponin (emerg Dept Use Only) Sent. 5 12:39 Initial lab(s) drawn, by ED staff, sent to lab. EKG done, by ED staff, reviewed by loi Hicks MD. 12:46 Head Brain Wo Cont In Process Unspecified. EDMS 12:48 CT Head Angio In Process Unspecified. EDMS 12:48 CT Neck Angio In Process Unspecified. EDMS 12:57 X-ray(s) taken. pt back from ct waiting for results. jh6 13:00 Stroke CXR 1 View In Process Unspecified. EDMS 14:18 No apparent distress. Awaiting radiology results. Awaiting disposition. 6 15:34 IV discontinued, intact, bleeding controlled, No redness/swelling at site. Pressure 6 dressing applied. 15:35 No provider procedures requiring assistance completed. 6 Administered Medications: 15:37 Discontinued: NS 0.9% 1000 ml IV at 1000 ml once 6 14:00 Drug: NS 0.9% 1000 ml Route: IV; Rate: 1000 ml; Site: left antecubital; 6 16:00 Follow up: Response: No adverse reaction 2 16:00 Follow up: IV Status: Completed infusion; IV Intake: 100ml 2 14:33 Drug: morphine 2 mg Route: IVP; Site: left antecubital; 6 15:36 Follow up: Response: Pain is decreased 6 14:33 Drug: Zofran (Ondansetron) 4 mg Route: IVP; Site: left antecubital; 6 14:50 Follow up: Response: No adverse reaction 2 15:37 Follow up: Response: No adverse reaction [facility] Point of Care Testing: Blood Glucose: 12:00 Blood Glucose: 99 mg/dL; sl2 Ranges: Intake: 16:00 IV: 100ml; Total: 100ml. 2 Outcome: 14:51 Discharge ordered by rn 15:35 Discharged to home ambulatory. 6 15:35 Condition: improved 15:35 Discharge instructions given to patient, family, Instructed on discharge instructions, follow up and referral plans. medication usage, Demonstrated understanding of instructions, follow-up care, medications, Prescriptions given X 1. 15:38 Patient left the ED. [facility] NIH Stroke Scale - NIH Stroke Score Date: 08/28/2021 Time: 12:30 Total Score = 1 1a. Level of Consciousness (LOC) - 0(Alert) 1b. Level of Consciousness (LOC) (Month \T\ Age) - 0(Both) 1c. LOC Commands (Open \T\ Closes Eyes/Market Risk Specialist) - 0(Both) 2. Best Gaze (Lateral Gaze Paresis) - 0(Normal) 3. Visual Field Loss - 0(No visual loss) 4. Facial Palsy - 0(Normal) 5a. Left Arm: Motor (10-second hold) - 0(No drift) 5b. Right Arm: Motor (10-second hold) - 0(No drift) 6a. Left Leg: Motor (5-second hold - always test supine) - 0(No drift) 6b. Right Leg: Motor (5-second hold - always test supine) - 0(No drift) 7. Limb Ataxia (finger/nose \T\ heel/patel - test with eyes open) - 0(Absent) 8. Sensory Loss (pinprick arms/legs/face) - 1(Mild to moderate loss) 9. Best Language: Aphasia (description/naming/reading) - 0(No aphasia) 10. Dysarthria (speech clarity - read or repeat words) - 0(Normal) 11. Extinction and Inattention (visual/tactile/auditory/spatial/personal) - 0(No abnormality) Initials: jh6 Signatures: Dispatcher [employer] Pilar Paez ds1 Brennan Hicks MD MD rn Martinez, Maria Evon Camarillo, RN RN vg1 Nneka Kim RN RN sl2 Charity Valverde RN RN jh6
--- NOTE | 2021-08-28 14:53 | EDPHYS ---
Physician Documentation [facility] Name: Marcelo Ramirez Age: 56 yrs Sex: Male : 1965 Arrival Date: 08/28/2021 Time: 11:45 Bed 16 Private MD: ED Physician Brennan Hicks HPI: 08/28 12:22 This 56 yrs old Male presents to ER via Ambulatory with complaints of rn Headache, nausea, dizziness. 12:22 The patient presents to the emergency department with a vision problem, blurred vision. rn Onset: The symptoms/episode began/occurred yesterday. Context: occurred at home, occurred while the patient was at rest. Associated signs and symptoms: Pertinent positives: headache, near-syncope, blurred vision, Pertinent negatives: fever, neck stiffness, seizure, syncope, loss of vision. Severity of symptoms: At their worst the symptoms were mild in the emergency department the symptoms have improved. Current symptoms: headache. The patient has not experienced similar symptoms in the past. The patient has not recently seen a physician. Patient reports at rest yesterday when began to feel "like crud". Reports headache and generalized weakness and fatigue, blurred vision like just got out of swimming pool and in both eyes. Also reports feels nausea. No speech problem or swallowing problem. No chest pain or shortness of breath. No abdominal pain. No back pain. Reports feels worse with change of position, and feels pulsations in his eyes and head. Does not have a PCP and denies any medical problems previously. States vision is improved and does not have blurred vision at this moment. Denies focal weakness. Reports mild numbness to left arm and leg but states that that has been going on for months and comes and goes.. Historical: - Allergies: 12:01 No Known Allergies; vg1 - Home Meds: 12:01 None [Active]; vg1 - PMHx: 12:01 COPD; vg1 - PSHx: 12:01 None; vg1 - Immunization history:: Client reports having NOT received the Covid vaccine. - Social history:: Smoking status: Patient/guardian denies using tobacco. - Family history:: not pertinent. - Hospitalizations: : No recent hospitalization is reported. ROS: 12:22 Constitutional: Negative for fever, chills, and weight loss, Eyes: Negative for injury, rn pain, redness, and discharge, Neck: Negative for injury, pain, and swelling, Cardiovascular: Negative for chest pain, palpitations, and edema, Respiratory: Negative for shortness of breath, cough, wheezing, and pleuritic chest pain, Abdomen/GI: Negative for abdominal pain, vomiting, diarrhea, and constipation, Back: Negative for injury and pain, : Negative for injury, bleeding, discharge, and swelling, MS/Extremity: Negative for injury and deformity, Skin: Negative for injury, rash, and discoloration, Neuro: Negative for seizure 12:22 All other systems are negative. Exam: 12:22 Constitutional: This is a well developed, well nourished patient who is awake, alert, rn and in no acute distress. Head/Face: Normocephalic, atraumatic. Eyes: Pupils equal round and reactive to light, extra-ocular motions intact. Lids and lashes normal. Conjunctiva and sclera are non-icteric and not injected. Cornea within normal limits. Periorbital areas with no swelling, redness, or edema. Neck: Trachea midline, no masses palpated, and no cervical lymphadenopathy. Supple, full range of motion without nuchal rigidity, or vertebral point tenderness. No Meningismus. Cardiovascular: Regular rate and rhythm. No pulse deficits. Respiratory: No increased work of breathing, no retractions or nasal flaring. Abdomen/GI: Soft, non-tender, no pulsatile/expanding mass Skin: Warm, dry MS/ Extremity: Pulses equal, no cyanosis. Neurovascular intact. Full, normal range of motion. Equal circumference. Neuro: Awake and alert, GCS 15, oriented to person, place, time, and situation. Cranial nerves II-XII grossly intact. Motor strength 5/5 in all extremities. Mild paresthesias of LUE/LLE. Cerebellar exam normal. Vital Signs: 11:56 BP 150 / 99; Pulse 64; Resp 16; Temp 98.3; Pulse Ox 99% ; Weight 86.18 kg; Height 5 ft. vg1 7 in. (170.18 cm); Pain 5/10; 12:50 BP 144 / 90; Pulse 73; Resp 18; Pulse Ox 100% ; Pain 4/10; jh6 14:14 BP 160 / 100; Pulse 63; Resp 18; Pulse Ox 100% on R/A; Pain 4/10; jh6 14:46 BP 146 / 86; Pulse 74; Resp 17; Temp 97.8(O); Pulse Ox 100% on R/A; Pain 2/10; 6 15:22 BP 144 / 84; Pulse 76; Resp 17; Pulse Ox 99% ; Pain 1/10; 6 11:56 Body Mass Index 29.76 (86.18 kg, 170.18 cm) vg1 NIH Stroke Scale Scores: 12:30 NIHSS Score: 1 [facility] MDM: 11:56 Patient medically screened. rn 14:48 Data reviewed: vital signs, nurses notes, lab test result(s), EKG, radiologic studies, rn CT scan, plain films, and as a result, I will discharge patient. Counseling: I had a detailed discussion with the patient and/or guardian regarding: the historical points, exam findings, and any diagnostic results supporting the discharge/admit diagnosis, lab results, radiology results, the need for outpatient follow up, to return to the emergency department if symptoms worsen or persist or if there are any questions or concerns that arise at home. Counseling: I had a detailed discussion with the patient and/or guardian regarding: the presence of at least one elevated blood pressure reading (>120/80) during this emergency department visit. Response to treatment: the patient's symptoms have markedly improved after treatment, and as a result, I will discharge patient. Special discussion: I discussed with the patient/guardian in detail that at this point there is no indication for admission to the hospital. It is understood, however, that if the symptoms persist or worsen the patient needs to return immediately for re-evaluation. Based on the history and exam findings, there is no indication for further emergent testing or inpatient evaluation. I discussed with the patient/guardian the need to see the primary care provider for further evaluation of the symptoms. Special discussion: I have referred the patient to see his PCP for further evaluation of high blood pressure. ED course: Patient improved, headache improved after pain medication. CT head and CT angio head and neck no acute findings. No evidence of occlusion or aneurysm or dissection. Normal neurological exam. Symptoms likely secondary to uncontrolled hypertension and patient states does not see a primary care doctor. Will place on low-dose antihypertensive for now given we do not have a steady record of blood pressures but entire family with blood pressure problems and stroke risks and after conversation with patient decided this is the best route until he follows up with a family doctor for further care of his blood pressure management.. 08/28 12:12 Order name: Glucose, Ancillary Testing; Complete Time: 12:49 EDMS 08/28 12:21 Order name: Basic Metabolic Panel rn 08/28 12:21 Order name: CBC with Diff rn 08/28 12:21 Order name: Magnesium; Complete Time: 14:11 rn 08/28 12:21 Order name: Protime (+inr); Complete Time: 12:49 rn 08/28 12:21 Order name: Ptt, Activated; Complete Time: 12:49 rn 08/28 12:21 Order name: Troponin (emerg Dept Use Only); Complete Time: 14:11 rn 08/28 12:21 Order name: Stroke CXR 1 View; Complete Time: 13:08 rn 08/28 12:21 Order name: CT Head Angio; Complete Time: 13:08 rn 08/28 12:21 Order name: CT Neck Angio; Complete Time: 13:08 rn 08/28 12:22 Order name: Basic Metabolic Panel; Complete Time: 14:11 EDMS 08/28 12:22 Order name: CBC with Automated Diff; Complete Time: 12:49 EDMS 08/28 12:44 Order name: Head Brain Wo Cont; Complete Time: 13:08 EDMS 08/28 12:21 Order name: EKG; Complete Time: 12:22 rn 08/28 12:21 Order name: Accucheck; Complete Time: 12:38 rn 08/28 12:21 Order name: Cardiac monitoring; Complete Time: 12:38 rn 08/28 12:21 Order name: EKG - Nurse/Tech; Complete Time: 12:38 rn 08/28 12:21 Order name: IV Saline Lock; Complete Time: 12:38 rn 08/28 12:21 Order name: Labs collected and sent; Complete Time: 12:38 rn 08/28 12:21 Order name: NPO; Complete Time: 12:38 rn 08/28 12:21 Order name: O2 Per Protocol; Complete Time: 12:39 rn 08/28 12:21 Order name: O2 Sat Monitoring; Complete Time: 12:39 rn 08/28 12:21 Order name: Stroke Swallow Screen; Complete Time: 12:50 rn Administered Medications: 15:37 Discontinued: NS 0.9% 1000 ml IV at 1000 ml once jh6 14:00 Drug: NS 0.9% 1000 ml Route: IV; Rate: 1000 ml; Site: left antecubital; 6 16:00 Follow up: Response: No adverse reaction 2 16:00 Follow up: IV Status: Completed infusion; IV Intake: 100ml 2 14:33 Drug: morphine 2 mg Route: IVP; Site: left antecubital; 6 15:36 Follow up: Response: Pain is decreased 6 14:33 Drug: Zofran (Ondansetron) 4 mg Route: IVP; Site: left antecubital; 6 14:50 Follow up: Response: No adverse reaction 2 15:37 Follow up: Response: No adverse reaction [facility] Point of Care Testing: Blood Glucose: 12:00 Blood Glucose: 99 mg/dL; 2 Ranges: Critical Glucose Levels:Adult <50 mg/dl or >400 mg/dl <40 mg/dl or >180 mg/dl Disposition Summary: 08/28/21 14:51 Discharge Ordered Location: Home rn Problem: new rn Symptoms: have improved rn Condition: Stable rn Diagnosis - Essential (primary) hypertension rn - Headache rn Followup: rn - With: Private Physician - When: As needed - Reason: Recheck today's complaints, Re-evaluation by your physician Discharge Instructions: - Discharge Summary Sheet rn - Hypertension, Adult rn Forms: - Medication Reconciliation Form rn - Thank You Letter rn - 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 Level of Consciousness (LOC) - 0(Alert) 1b. Level of Consciousness (LOC) (Month \\T\\ Age) - 0(Both) 1c. LOC Commands (Open \\T\\ Closes Eyes/Procurement Officer) - 0(Both) 2. Best Gaze (Lateral Gaze Paresis) - 0(Normal) 3. Visual Field Loss - 0(No visual loss) 4. Facial Palsy - 0(Normal) 5a. Left Arm: Motor (10-second hold) - 0(No drift) 5b. Right Arm: Motor (10-second hold) - 0(No drift) 6a. Left Leg: Motor (5-second hold - always test supine) - 0(No drift) 6b. Right Leg: Motor (5-second hold - always test supine) - 0(No drift) 7. Limb Ataxia (finger/nose \\T\\ heel/patel - test with eyes open) - 0(Absent) 8. Sensory Loss (pinprick arms/legs/face) - 1(Mild to moderate loss) 9. Best Language: Aphasia (description/naming/reading) - 0(No aphasia) 10. Dysarthria (speech clarity - read or repeat words) - 0(Normal) 11. Extinction and Inattention (visual/tactile/auditory/spatial/personal) - 0(No abnormality) Initials: jh6 Signatures: Dispatcher [employer] Brennan Paniagua MD MD rn Garcia, Evon RN RN 1 Charity Valverde RN RN jh6 Nneka Kim RN sl2 Corrections: (The following items were deleted from the chart) 12:44 12:22 CT-STROKE BRAIN W/O CONTRAST+CT.RAD.BRZ ordered. EDMS EDMS
[2021-08-28 15:47] VITALS: TEMP 97.8
[2021-08-28 15:48] VITALS: BP 144/84; O2SAT 99
--- NOTE | 2021-09-01 08:16 | EKG ---
Test Date: 2021-08-28 Test Time: 12:01:49 Casino Supervisor: MAO MEASUREMENT RESULTS: Intervals: Rate: 61 WV: 152 QRSD: 92 QT: 388 QTc: 390 [place]: P: 31 WV: 152 QRS: 64 T: 37 INTERPRETIVE STATEMENTS: Normal sinus rhythm Normal ECG Compared to ECG 12/15/2013 00:22:38 Sinus bradycardia no longer present Electronically Signed On 09-01-21 08:04:48 TOOL AND GAUGE INSPECTOR by Lázaro Mcmanus
== END 2021-08-28 15:38 | disposition home or self-care (01) ==
LOC: ER 11:43
DX: I10 Essential (primary) hypertension (principal); J44.9 Chronic obstructive pulmonary disease, unspecified
CPT/HCPCS: 96361; 93005; 85025; 80048; 36415; 83735; 85610; 82565; 82947; 85730; 84484; 70450; 70496; 70498; 71045; 96375; 96374; 99284; Q9967; J2270; J7030; J2405

== ENCOUNTER 2022-05-24 00:33 | Emergency (ER) | payer BC ==
--- OUTSIDE RECORDS SUMMARY | 2022-05-24 00:35 | XMS REPORT | Continuity of Care Document ---
:1965 Author Organization [facility] t Address [address] [place] [address] Dr. Kirkland [address] [place] [id number] Care Team Providers Name Role Phone DIAZ BANSAL Attending Clinician Unavailable Problems This patient has no known problems. Allergies, Adverse Reactions, Alerts Allergy Allergy Status Severity Reaction(s) Onset Inactive Treating Comm ents Source Name Type Date Date Clinician NO KNOWN Drug Active [facility] ALLERGIE Class [facility] Medications This patient has no known medications. Procedures This patient has no known procedures. Encounters Start End Encounter Admission Attending Care Care Encounter Source Date/Time Date/Time Type Type Clinicians Facility Department ID 2021-04-04 2021-04-04 Emergency X JACOBY BANSAL ERT [id number] [facility] 10:50:00 10:50:00 DIAZ [facility] Results This patient has no known results.
[2022-05-24] MEDS ORDERED: MORPHINE 4 MG/ML SYR ONE (03:01)
[2022-05-24] MEDS ORDERED: ONDANSETRON 4 MG/2 ML VIAL ONE (03:01)
[2022-05-24 03:14] LABS: Absolute Lymphocytes (CBC) 2.1 K/uL (0.7-4.9); Hematocrit 41.4 % (39.6-49.0); Lymphocytes % 25.4 % (15.3-44.8); MCV 88.4 fL (80-100); MPV 7.6 fL (7.6-11.3); RBC Red Blood Cell Count 4.69 M/uL (4.33-5.43)
[2022-05-24 03:28] LABS: Protime INR 0.97
[2022-05-24 03:35] LABS: Albumin 3.8 g/dL (3.4-5.0); Bilirubin Direct 0.2 mg/dL (0-0.2); Bilirubin Total 0.9 mg/dL (0.2-1.0); Potassium 3.5 mmol/L (3.5-5.1); Protein, Total 7.5 g/dL (6.4-8.2); Troponin High Sensitivity 5.7 pg/mL (<58.9)
[2022-05-24 04:04] LABS: Urine Blood Negative (Negative); Urine Glucose Negative (Negative); Urine Protein Negative (Negative); Urine Specific Gravity >=1.030 (1.005-1.030)
--- NOTE | 2022-05-24 04:35 | ER ---
Nurse's Notes [facility] Name: Marcelo Ramirez Age: 57 yrs Sex: Male : 1965 Arrival Date: 05/24/2022 Time: 00:35 Bed 26 Private MD: Diagnosis: Chest pain, unspecified;Dizziness and giddiness;Headache;Essential (primary) hypertension Presentation: 05/24 00:58 Chief complaint: Patient's son or daughter states: pt c/o feeling like his blood bb pressure is really high with chest tightness, nausea and a migraine symptoms started about 1800 tonight took his HCTZ around 2100. Coronavirus screen: At this time, the client does not indicate any symptoms associated with coronavirus-19. Ebola Screen: No symptoms or risks identified at this time. Initial Sepsis Screen: Does the patient meet any 2 criteria? No. Patient's initial sepsis screen is negative. Does the patient have a suspected source of infection? No. Patient's initial sepsis screen is negative. Risk Assessment: Do you want to hurt yourself or someone else? Patient reports no desire to harm self or others. Onset of symptoms was May 24, 2022. 00:58 Method Of Arrival: Ambulatory bb 00:58 Acuity: BROOKE 3 bb Triage Assessment: 01:30 General: Appears in no apparent distress. uncomfortable, Behavior is cooperative. Pain: vc1 Complains of pain in chest Pain does not radiate. EENT: No deficits noted. Neuro: Level of Consciousness is awake, alert, obeys commands, Oriented to person, place, time, situation, Appropriate for age Reports dizziness, headache. Cardiovascular: Reports chest pain. Respiratory: Airway is patent Respiratory effort is even, unlabored, Respiratory pattern is regular, symmetrical. GI: No deficits noted. : Derm: No deficits noted. Historical: - Allergies: 01:02 No Known Allergies; bb - Home Meds: 01:02 Hydrochlorothiazide Oral [Active]; bb - PMHx: 01:02 COPD; Hypertensive disorder; bb - Immunization history:: Client reports having NOT received the Covid vaccine. - Social history:: Smoking status: Patient denies any tobacco usage or history of. Screenin:30 Abuse screen: Denies threats or abuse. Nutritional screening: No deficits noted. vc1 Tuberculosis screening: No symptoms or risk factors identified. Fall Risk None identified. Assessment: 01:30 Pain: Pain began suddenly. vc1 Vital Signs: 00:58 BP 156 / 93; Pulse 53; Resp 16; Pulse Ox 98% ; Weight 86.18 kg (R); Height 5 ft. 7 in. bb (170.18 cm) (R); Pain 7/10; 02:58 BP 148 / 92 LA Supine; Pulse 61; vc1 03:00 BP 147 / 94 Sitting; Pulse 56; vc1 03:01 BP 150 / 94 Standing; Pulse 62; vc1 03:01 BP 141 / 95; Pulse 49; Resp 12; Pulse Ox 99% ; vc1 03:58 Temp 97.7(O); vc1 00:58 Body Mass Index 29.76 (86.18 kg, 170.18 cm) bb ED Course: 00:35 Patient arrived in ED. bp1 01:02 Triage completed. bb 01:02 Arm band placed on Patient placed in waiting room, Patient notified of wait time. EKG bb completed in triage. Results shown to MD. 01:10 Poncho Early MD is Attending Physician. mh7 01:12 EKG done, by ED staff. wm 02:00 Patient has correct armband on for positive identification. Placed in gown. Call light vc1 in reach. Side rails up X2. Client placed on continuous cardiac and pulse oximetry monitoring. NIBP monitoring applied. 02:22 CT Head Brain wo Cont In Process Unspecified. EDMS 02:23 XRAY Chest (1 view) In Process Unspecified. EDMS 02:35 Inserted saline lock: 20 gauge in right antecubital area, using aseptic technique. vc1 Blood collected. Patient maintains SpO2 saturation greater than 95% on room air. 02:38 Evelin Bianchi RN is Primary Nurse. vc1 04:33 Lázaro Mcmanus MD is Referral Physician. mh7 04:48 No provider procedures requiring assistance completed. IV discontinued, intact, vc1 bleeding controlled, No redness/swelling at site. Pressure dressing applied. Administered Medications: 02:59 Drug: Zofran (Ondansetron) 4 mg Route: IVP; Site: right antecubital; vc1 04:04 Follow up: Response: No adverse reaction vc1 02:59 Drug: morphine 2 mg Route: IVP; Infused Over: 4 mins; Site: right antecubital; vc1 04:04 Follow up: Response: No adverse reaction vc1 Medication: 04:48 VIS not applicable for this client. vc1 Outcome: 04:33 Discharge ordered by . valerie 04:48 Discharged to home ambulatory. vc1 04:48 Condition: good 04:48 Discharge instructions given to patient, Instructed on discharge instructions, follow up and referral plans. medication usage, Demonstrated understanding of instructions, follow-up care, medications, Prescriptions given X 1. 04:48 Patient left the ED. vc1 Signatures: Dispatcher [employer] EDRocio Vázquez, TIAGO RN Bonny Vidal Maurice, MD MD mh7 Marsh, Wendy wm Calcote, Vanessa, RN RN vc1 Corrections: (The following items were deleted from the chart) 01:05 01:02 Home Meds: None; harriet larios
--- NOTE | 2022-05-24 04:35 | EDPHYS ---
Physician Documentation [facility] Name: Marcelo Ramirez Age: 57 yrs Sex: Male : 1965 Arrival Date: 05/24/2022 Time: 00:35 Bed 26 Private MD: ED Physician Poncho Early HPI: 05/24 01:47 This 57 yrs old Male presents to ER via Ambulatory with complaints of Chest mh7 Tightness, Dizziness, Headache, Nausea. 01:47 The patient or guardian reports chest pain that is located primarily in the anterior mh7 chest wall, bilaterally. Onset: yesterday, at 18:30. The pain does not radiate. Associated signs and symptoms: Pertinent positives: dizziness, headache, nausea, Pertinent negatives: abdominal pain, cough, diaphoresis, lower extremity pain, lower extremity swelling, near syncope, palpitations, recent travel, shortness of breath, syncope, vomiting. The chest pain is described as tightness. Duration: The patient or guardian reports multiple episodes, that are intermittent, that wax and wane, with no pattern. Modifying factors: The symptoms are alleviated by nothing. the symptoms are aggravated by nothing. Severity of pain: At its worst the pain was moderate last night, in the emergency department the pain has improved moderately. Historical: - Allergies: 01:02 No Known Allergies; bb - Home Meds: 01:02 Hydrochlorothiazide Oral [Active]; bb - PMHx: 01:02 COPD; Hypertensive disorder; bb - Immunization history:: Client reports having NOT received the Covid vaccine. - Social history:: Smoking status: Patient denies any tobacco usage or history of. ROS: 01:47 Constitutional: Negative for fever, chills, and weight loss, Eyes: Negative for injury, mh7 pain, redness, and discharge, ENT: Negative for injury, pain, and discharge, Neck: Negative for injury, pain, and swelling, Respiratory: Negative for shortness of breath, cough, wheezing, and pleuritic chest pain. 01:47 Back: Negative for injury and pain, : Negative for injury, bleeding, discharge, and swelling, MS/Extremity: Negative for injury and deformity, Skin: Negative for injury, rash, and discoloration, Psych: Negative for depression, anxiety, suicide ideation, homicidal ideation, and hallucinations, Allergy/Immunology: Negative for hives, rash, and allergies, Endocrine: Negative for neck swelling, polydipsia, polyuria, polyphagia, and marked weight changes, Hematologic/Lymphatic: Negative for swollen nodes, abnormal bleeding, and unusual bruising. 01:47 Abdomen/GI: Negative for abdominal pain, vomiting, diarrhea, constipation, abdominal cramps, abdominal distension, anorexia, dysphagia, hematemesis, black/tarry stool, rectal pain, rectal bleeding, bowel incontinence, flatulence. Exam: 01:47 Head/Face: Normocephalic, atraumatic. Eyes: Pupils equal round and reactive to light, mh7 extra-ocular motions intact. Lids and lashes normal. Conjunctiva and sclera are non-icteric and not injected. Cornea within normal limits. Periorbital areas with no swelling, redness, or edema. Neck: Trachea midline, no thyromegaly or masses palpated, and no cervical lymphadenopathy. Supple, full range of motion without nuchal rigidity, or vertebral point tenderness. No Meningismus. Chest/axilla: Normal chest wall appearance and motion. Nontender with no deformity. No lesions are appreciated. Cardiovascular: Regular rate and rhythm with a normal S1 and S2. No gallops, murmurs, or rubs. Normal PMI, no JVD. No pulse deficits. Respiratory: Lungs have equal breath sounds bilaterally, clear to auscultation and percussion. No rales, rhonchi or wheezes noted. No increased work of breathing, no retractions or nasal flaring. Abdomen/GI: Soft, non-tender, with normal bowel sounds. No distension or tympany. No guarding or rebound. No evidence of tenderness throughout. Back: No spinal tenderness. No costovertebral tenderness. Full range of motion. Skin: Warm, dry with normal turgor. Normal color with no rashes, no lesions, and no evidence of cellulitis. MS/ Extremity: Pulses equal, no cyanosis. Neurovascular intact. Full, normal range of motion. Neuro: Awake and alert, GCS 15, oriented to person, place, time, and situation. Cranial nerves II-XII grossly intact. Motor strength 5/5 in all extremities. Sensory grossly intact. Cerebellar exam normal. Normal gait. Psych: Awake, alert, with orientation to person, place and time. Behavior, mood, and affect are within normal limits. 01:47 Constitutional: The patient appears in no acute distress, alert, awake, uncomfortable. Vital Signs: 00:58 BP 156 / 93; Pulse 53; Resp 16; Pulse Ox 98% ; Weight 86.18 kg (R); Height 5 ft. 7 in. bb (170.18 cm) (R); Pain 7/10; 02:58 BP 148 / 92 LA Supine; Pulse 61; vc1 03:00 BP 147 / 94 Sitting; Pulse 56; vc1 03:01 BP 150 / 94 Standing; Pulse 62; vc1 03:01 BP 141 / 95; Pulse 49; Resp 12; Pulse Ox 99% ; vc1 03:58 Temp 97.7(O); vc1 00:58 Body Mass Index 29.76 (86.18 kg, 170.18 cm) bb MDM: 04:26 Differential diagnosis: acute myocardial infarction, acute pericarditis, anxiety, mh7 coronary artery disease chest wall pain, congestive heart failure costochondritis, esophagitis, gastritis, gastroesophageal reflux disease (GERD), myocarditis, pericarditis, pleurisy, pneumonia, pneumothorax, pulmonary embolus. HEART Score: History: Slightly Suspicious (0), ECG: Normal (0), Age: > 45 and < 65 years (1), Risk Factors: 1 or 2 risk factors (1), [Hypertension] Troponin: < or = 1 x Normal Limit (0), Total Score = 2. Data reviewed: vital signs, nurses notes, old medical records, lab test result(s), cardiac enzymes, CBC, electrolytes, EKG, radiologic studies, CT scan, plain films. Data interpreted: Pulse oximetry: on room air is 99 %. Interpretation: normal. Counseling: I had a detailed discussion with the patient and/or guardian regarding: the historical points, exam findings, and any diagnostic results supporting the discharge/admit diagnosis, the presence of at least one elevated blood pressure reading (>120/80) during this emergency department visit, lab results, radiology results. Counseling: I had a detailed discussion with the patient and/or guardian regarding: the need for further work-up and treatment in the hospital. Response to treatment: the patient's symptoms have resolved after treatment, the patient's blood pressure is in an acceptable range, mental status has returned to baseline, the patient no longer shows bradycardia, the patient is not short of breath, the patient is not tachycardic, the patient's pain is gone, the patient's temperature has normalized, the patient is now symptom free, patient is well hydrated. Refusal of service: The patient/guardian displays adequate decision making capability and despite a detailed discussion of alternatives, benefits, risks, and consequences refuses: Admission to the hospital for further work-up and treatment. ED course: Well appearing, NAD, VSS, no focal neurological deficits. Discussed all test results and findings and recommended OBS admission for further evaluation. Patient declined admission and requested to be discharged home. Explained that symptoms may worsen and lead to disability or . He verbalized that he understood this information as presented. Advised to return to the ER if worsening of symptoms or any other concerns.. 04:33 Patient medically screened. [facility] 05/24 01:37 Order name: Basic Metabolic Panel; Complete Time: 03:54 [facility] 05/24 01:37 Order name: CBC with Diff; Complete Time: 03:22 [facility] 05/24 01:37 Order name: D-Dimer; Complete Time: 03:54 [facility] 05/24 01:37 Order name: LFT's; Complete Time: 03:54 [facility] 05/24 01:37 Order name: Magnesium; Complete Time: 03:54 [facility] 05/24 01:37 Order name: NT PRO-BNP; Complete Time: 03:54 [facility] 05/24 01:37 Order name: PT-INR; Complete Time: 03:54 [facility] 05/24 01:37 Order name: Troponin HS; Complete Time: 03:54 [facility] 05/24 01:37 Order name: XRAY Chest (1 view) [facility] 05/24 01:37 Order name: CT Head Brain wo Cont [facility] 05/24 01:43 Order name: COVID-19 SARS RT PCR (Document "Date of Onset" if Symptomatic); Complete [facility] Time: 04:17 05/24 01:43 Order name: Influenza Screen (a \\T\\ B); Complete Time: 03:54 [facility] 05/24 04:05 Order name: Urine Dipstick-Ancillary; Complete Time: 04:17 [facility] 05/24 01:37 Order name: EKG; Complete Time: 01:41 [facility] 05/24 01:37 Order name: Cardiac monitoring; Complete Time: 02:59 [facility] 05/24 01:37 Order name: EKG - Nurse/Tech; Complete Time: 02:59 [facility] 05/24 01:37 Order name: IV Saline Lock; Complete Time: 02:59 [facility] 05/24 01:37 Order name: Labs collected and sent; Complete Time: 02:59 [facility] 05/24 01:37 Order name: O2 Per Protocol; Complete Time: 02:58 [facility] 05/24 01:37 Order name: O2 Sat Monitoring; Complete Time: 02:58 [facility] 05/24 01:37 Order name: Urine Dipstick-Ancillary (obtain specimen); Complete Time: 04:04 [facility] 05/24 01:44 Order name: Orthostatics; Complete Time: 03:59 mh7 Administered Medications: 02:59 Drug: Zofran (Ondansetron) 4 mg Route: IVP; Site: right antecubital; vc1 04:04 Follow up: Response: No adverse reaction vc1 02:59 Drug: morphine 2 mg Route: IVP; Infused Over: 4 mins; Site: right antecubital; vc1 04:04 Follow up: Response: No adverse reaction vc1 Disposition Summary: 05/24/22 04:33 Discharge Ordered Location: Home [facility] Problem: new [facility] Symptoms: have improved [facility] Condition: Stable 7 Diagnosis - Chest pain, unspecified mh7 - Dizziness and giddiness mh7 - Headache mh7 - Essential (primary) hypertension 7 Followup: 7 - With: Private Physician - When: 1 - 2 days - Reason: Worsening of condition, Recheck today's complaints, Continuance of care, Re-evaluation by your physician Followup: 7 - With: Lázaro Mcmanus MD - When: 1 - 2 days - Reason: Worsening of condition, Recheck today's complaints Discharge Instructions: - Discharge Summary Sheet 7 - General Headache Without Cause mh7 - Nonspecific Chest Pain, Adult, [id number] mh7 - Dizziness, [id number] mh7 - Hypertension, Adult, [id number] 7 Forms: - Medication Reconciliation Form 7 - Thank You Letter 7 - Antibiotic Education 7 - Prescription Opioid Use 7 Prescriptions: - Hydrochlorothiazide 50 mg Oral Tablet - take 1 tablet by ORAL route once daily; 30 tablet; Refills: 0, Product [facility] Selection Permitted Signatures: Dispatcher [employer] Rocio Willson RN RN bb Poncho Early MD MD mh7 Evelin Bianchi RN RN vc1 Corrections: (The following items were deleted from the chart) 01:05 01:02 Home Meds: None; harriet larios
[2022-05-24 05:33] VITALS: BP 141/95; O2SAT 99
[2022-05-24 05:35] VITALS: TEMP 97.7
--- NOTE | 2022-05-24 08:12 | EKG ---
Test Date: 2022-05-24 Test Time: 01:11:06 Applique Sewer: MEASUREMENT RESULTS: Intervals: Rate: 63 FL: 164 QRSD: 90 QT: 404 QTc: 413 [place]: P: 34 FL: 164 QRS: 16 T: 39 INTERPRETIVE STATEMENTS: Normal sinus rhythm Normal ECG Compared to ECG 08/28/2021 12:01:49 No significant changes Electronically Signed On 05-24-22 08:10:56 CDT by Lázaro Mcmanus
--- NOTE | 2022-05-24 18:25 | RAD REPORT ---
EXAM DESCRIPTION: CT - Head Brain Wo Cont - 05/24/2022 6:41 am CLINICAL HISTORY: 57 years Male Headache, tension-type TECHNIQUE: Multiple axial CT images of the brain were performed followed by sagittal and coronal rec onstructed images. The CT study is performed according to ALARA (as low as reasonably achievable) or ALARA/IMAGE GENTLY, with automatic adjustment of mA and/or kV according to patient size. Performed on: 05/24/2022 at 2:14 AM CLINICAL HISTORY: Head CT performed on 08/28/2021. FINDINGS: Brain: There is no evidence of mass, acute mass effect or midline shift. There are no acut e extra-axial fluid collections. There is no evidence of acute intracranial hemorrhage. The cerebra l sulci and ventricles are normal in size and configuration. There are no focal abnormal areas of inc reased or decreased attenuation. Paranasal Sinuses and Mastoids: There is an approximately 2 cm left maxillary sinus mucous retentio n cyst. 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 The mastoid air cells are clear. Orbits: The orbital contents are grossly unremarkable. Bones: No acute osseous abnormalities are identified. Soft Tissues: No focal soft tissue abnormalities are identified. IMPRESSION: 1. No evidence of acute intracranial pathology. 2. Approximately 2 cm left maxillary sinus mucous retention cyst. Electronically signed by: Negar Andersen DO 05/24/2022 3:25 AM CDT Due to temporary technical issues with the PACS/Fluency reporting system, reports are being signed by the in house radiologists without review as a courtesy to insure prompt reporting. The interpreting radiologist is fully responsible for the content of the report.
--- NOTE | 2022-05-24 18:29 | RAD REPORT ---
EXAM DESCRIPTION: RAD - Chest Single View - 05/24/2022 2:22 am CLINICAL HISTORY: 57 years Male, CHEST PAIN COMPARISON: None. TECHNIQUE: Single portable x-ray view of the chest performed on 05/24/2022 at 2:17 AM FINDINGS: The lungs are well expanded and are clear. There is no evidence of a pneumothorax. The rad iograph is lordotic in position. The cardiac silhouette is normal in size and configuration. The mediastinal contours are normal. No acute osseous abnormality is identified. No acute soft tissue abnormalities are seen. Lines and tubes: None. Free air: None IMPRESSION: No evidence of acute intrathoracic disease. Electronically signed by: Negar Andersen DO 05/24/2022 3:26 AM CDT Due to temporary technical issues with the PACS/Fluency reporting system, reports are being signed by the in house radiologists without review as a courtesy to insure prompt reporting. The interpreting radiologist is fully responsible for the content of the report.
== END 2022-05-24 04:48 | disposition home or self-care (01) ==
LOC: ER 00:33
DX: R07.89 Other chest pain (principal); R42 Dizziness and giddiness; R51.9 Headache, unspecified; I10 Essential (primary) hypertension; J44.9 Chronic obstructive pulmonary disease, unspecified; Z20.822 Contact with and (suspected) exposure to COVID-19
CPT/HCPCS: 93005; 85025; 80048; 36415; 83735; 85610; 85379; 80076; 81003; 84484; 83880; 87804 ×2; 70450; 71045; U0003; J2405

== ENCOUNTER 2022-12-01 12:51 | Emergency (ER) | payer BC ==
--- OUTSIDE RECORDS SUMMARY | 2022-12-01 12:56 | XMS REPORT | Continuity of Care Document ---
:1965 Author Organization [facility] t Address [address] [place] [address] Care Team Providers Name Role Phone PCP, PATIENT DOES NOT HAVE A Primary Care Physician Unavailruma Westbrook MD, Sendamanda K.H. Attending Clinician LLOYD JONES Attending Clinician Unavailable Diaz Silva DO Attending Clinician Lloyd Jones MD Attending Clinician SURYA LAGOS Attending Clinician Unavailable DIAZ SILVA Attending Clinician Unavailable LLOYD JONES Admitting Clinician Unavailable Lloyd Jones MD Admitting Clinician Payers Payer Name Policy Type Policy Number Effective Date Expiration Date [facility] 2 [id number] 2022 00:00:00 Problems Condition Condition Condition Status Onset Resolution Last Treating Co mments Source Name Details Category Date Date Treatment Clinician Date Essential Essential Disease Active Uni vers hypertensi hypertensi 8-20 it y of on on 00:00: [place] 00 Medical Branch LVH (left LVH (left Disease Active Uni vers ventricula ventricula 8-20 it y of r r 00:00: [place] hypertroph hypertroph 00 Me dical y) y) Branch Dyslipidem Dyslipidem Disease Active U nivers ia ia 8-20 ity of 00:00: [place] 00 Medical Ramona Chest Chest Disease Active Univers pain, pain, 8-19 ity of unspecif[place] 00 [facility] Obesity Obesity Disease Active Univers (BMI (BMI 8-19 ity of 30-39.9) 30-39.9) 00:00: [place] 00 [facility] [place] [facility] Branch Allergies, Adverse Reactions, Alerts Allergy Allergy Status Severity Reaction(s) Onset Inactive Treating Comm ents Source Name Type Date Date Clinician NO KNOWN Drug Active Univers ALLERGIE Class ity of S [facility] Social History Social Habit Start Date Stop Date Quantity Comments Source History of Passive smoker University of tobacco use [facility] Exposure to 2022-05-17 2022-05-27 Not sure [facility] SARS-CoV-2 00:00:00 10:07:00 [facility] (event) Ramona Tobacco use and 2022-05-27 2022-05-27 Smokeless tobacco Un iversity of exposure 00:00:00 00:00:00 non-user [facility] Sex Ass[birth year] At [birth year] [facility] [place] 00:00:00 00:00:00 Smoking Status Start Date Stop Date Source Tobacco smoking [facility] [place] [facility] consumption unknown Ex-smoker 2022-05-27 00:00:00 2022-05-27 [place] [facility] [place] 00:00:00 [facility] Medications Ordered Filled Start Stop Current Ordering Indication Dosage Frequency Signature Comments Components Source Medication Medication Date Date Medication? Clinician (SIG) Name Name hydroCHLORO Yes 12.5mg Take 12.5 Univers thiazide 8-22 mg by ity of 12.5 mg 01:00: mouth in [place] capsule 04 the Medical morning. Branch fenofibrate 2021- No [id number] 134mg Take 1 Univers micronized -29 06- capsule by it y of 134 mg 00:00: 04:59 mouth in [place] capsule 00 :00 the Medical morning Branch for 30 days. fenofibrate 2021- No [id number] 134mg Take 1 Univers micronized 8-29 06- capsule by it y of 134 mg 00:00: 04:59 mouth in [place] capsule 00 :00 the Medical morning Branch for 30 days. fenofibrate 0 Yes 134mg 134 mg, Un jacinto micronized 8-20 Oral, ity of (LOFIBRA) 14:00: DAILY, [place] capsule 134 00 First dose Me dical mg on [facility] 05/28/22 at 0900, Until Discontinu ed, Routine hydroCHLORO 0 Yes 12.5mg 12.5 mg, Univers thiazide 8-20 Oral, ity of (ESIDRIX) 14:00: DAILY, [place] tablet 12.5 00 First dose Me dical mg on [facility] 05/28/22 at 0900, Until Discontinu ed carvediloL 0 Yes 6.25mg 6.25 mg, U nivers (COREG) 8-20 Oral, BID ity of tablet 6.25 13:15: MEALS[place] mg 00 First dose Medical on [facility] 05/28/22 at 0815, Until Discontinu ed, Routine hydroCHLORO 0 Yes 12.5mg Take 12.5 Univers thiazide 8-20 mg by ity of 12.5 mg 13:03: mouth in [place] capsule 19 the morning. Branch magnesium 2021- No 2g 2 g, IV Univ ers sulfate in 05-28 Piggyback, it y of water 2 01:15: 01:40 Administer Miguel Angel as gram/50 mL 00 :00 over 60 Medica l (4 %) Minutes, Branch infusion 2 ONCE, 1 g dose, On Mon05/27/22 at 2015, Routine carvediloL 2021- No [id number] 6.25mg Take 1 Univers 6.25 mg 8-20 -20 tablet by ity of tablet 00:00: 04:59 mouth in [place] 00 :00 the [facility] [place] [facility] morning Branch and 1 tablet in the evening. Take with meals. Do all this for 30 days. aspirin 81 2021-2021- No [id number] 81mg Take 1 Univers mg chewable 8-20 -20 tablet by it y of tablet 00:00: 04:59 mouth in [place] 00 :00 the Medical morning Branch for 30 days. carvediloL 2021- No [id number] 6.25mg Take 1 Univers 6.25 mg 8-20 - tablet by ity of tablet 00:00: 04:59 mouth in [place] 00 :00 the Medical morning Branch and 1 tablet in the evening. Take with meals. Do all this for 30 days. aspirin 81 2021- No [id number] 81mg Take 1 Univers mg chewable 05-28 tablet by it y of tablet 00:00: 04:59 mouth in [place] 00 :00 the Medical morning Branch for 30 days. nitroglycer 0 Yes .4mg 0.4 mg, Uni vers in 05-27 Sublingual ity of (NITROSTAT) 18:04: , Q5MIN Miguel Angel as sublingual 01 PRN, Medical tablet 0.4 Starting Branc h mg on 05/27/22 at 1304, Until Discontinu ed, Routine, Chest pain HYDROcodone 2021- No 1{tbl} 1 tablet, Univers -acetaminop 05-27 Oral, ity of hen (NORCO 18:03: 18:02 Q6HPRN, Miguel Angel as 5) 5-325 mg 36 :36 Starting Medi tata tablet 1 on Mon Branch tablet 05/27/22 at 1303, Until 05/29/22 at 1302, Routine, Pain (scale 4-6) acetaminoph Yes 650mg 650 mg, Un jacinto en 05-27 Oral, ity of (TYLENOL) 18:03: Q6HPRN, [place] tablet 650 34 Starting Medic al mg on Fri Branch 05/27/22 at 1303, Until Discontinu ed, Routine, Pain (scale 1-3) acetaminoph 2021- No 1000mg 1,000 mg, Univers en 05-27 Oral, ity of (TYLENOL) 18:00: 17:48 ONCE, 1 [place] tablet [place] :[place] dose, On Medical 1,000 mg Fri Branch 05/27/22 at 1300, RUDDY ofloxacin 2021- No [id number] 5[drp] Place 5 Univers 0.3 % otic 04-04 Drops in ity of drops 00:00: 00:00 left ear 2 [place] 00 :00 (two) Medical times Branch daily. Vital Signs Vital Name Observation Time Observation Value Comments Source Systolic blood 2022-05-28 16:18:00 145 mm[Hg] Univer sity of pressure [place] [facility] Diastolic blood 2022-05-28 16:18:00 98 mm[Hg] [facility] Heart rate 2022-05-28 16:18:00 55 /min [facility] Body temperature 2022-05-28 16:18:00 36.28 Jeanan [facility] Respiratory rate 2022-05-28 16:18:00 16 /min [facility] Oxygen saturation in 2022-05-28 16:18:00 96 /min [facility] Arterial blood by [facility] Pulse oximetry Ramona Body height 2022-05-27 18:14:00 170.2 cm [facility] Body weight 2022-05-27 18:14:00 88.179 kg [facility] BMI 2022-05-27 18:14:00 30.45 kg/m2 [facility] Procedures Procedure Date / Time Performing Clinician Source Performed MAGNESIUM 2022-05-28 09:00:00 Lloyd Jones [facility] TROPONIN I 2022-05-28 09:00:00 Marisa Westbrook [facility] BASIC METABOLIC PANEL 2022-05-28 09:00:00 Lloyd Jones [facility] (NA, K, CL, CO2, Medical Ramona GLUCOSE, BUN, CREATININE, CA) CBC WITH DIFF 2022-05-28 09:00:00 Lloyd Jones [facility] N-TERMINAL PRO-BNP 2022-05-28 09:00:00 [facility] TROPONIN I 2022-05-27 21:09:00 Lloyd Jones [facility] TRANSTHORACIC ECHO (TTE) 2022-05-27 18:52:43 Lloyd Jones [facility] [place] XR CHEST 1 VW 2022-05-27 15:16:07 [facility] LIPASE 2022-05-27 15:09:00 [facility] MAGNESIUM 2022-05-27 15:09:00 [facility] TROPONIN I 2022-05-27 15:09:00 [facility] COMP. METABOLIC PANEL 2022-05-27 15:09:00 Diaz Silva [facility] ([id number]) Medical Branch LIPID PANEL 2022-05-27 15:09:00 Singer [facility] ([id number])(TOTAL Medical Branch CHOLESTEROL, TRIGLYCERIDES, HDL) CBC WITH DIFF 2022-05-27 15:09:00 [facility] GLYCOSYLATED HEMOGLOBIN 2022-05-27 15:09:00 Singer [facility] (A1C) Medical Branch PROTHROMBIN TIME / INR 2022-05-27 15:09:00 Singer Diaz [facility] N-TERMINAL PRO-BNP 2022-05-27 15:09:00 Diaz Silva [facility] LOW-DENSITY LIPOPROTEIN, 2022-05-27 15:09:00 Diaz Silva [facility] DIRECT Medical Ramona COVID-19 (ID NOW RAPID 2022-05-27 15:09:00 Diaz Silva [facility] TESTING) Medical Branch HB ECG ROUTINE & RHYTHM 2022-05-27 15:04:59 Singer [facility] STRIP Medical Branch CONSENT/REFUSAL FOR 2022-05-27 14:53:13 Doctor Unassigned, No Un [facility] DIAGNOSIS AND TREATMENT Name Medical Branch Plan of Care Planned Activity Planned Date Details Comments Source Future Scheduled 2022-09-24 COVID-19 VACCINE (#1) [facility] [place] [facility] Hospital Test 15:09:59 [code = COVID-19 VACCINE (#1)] Future Scheduled 2022-09-24 COLONOSCOPY SCREENING [facility] Test 15:09:59 [code = COLONOSCOPY SCREENING] Future Scheduled 2022-09-24 SHINGLES VACCINES (1 Met [facility] Hospital Test 15:09:59 of 2) [code = SHINGLES VACCINES (1 of 2)] Future Scheduled 2022-09-24 INFLUENZA VACCINE [facility] Test 15:09:59 [code = INFLUENZA VACCINE] Encounters Start End Encounter Admission Attending Care Care Encounter Source Date/Time Date/Time Type Type Clinicians Facility Department ID 2022-05-30 2022-05-30 Telephone Pietro [facility] [id number] Univers 00:00:00 00:00:00 Marisa SALGUERO [id number] [facility] [id number] [facility] [id number] Va dical [facility] 059 [facility] 2022-05-27 2022-05-28 Outpatient X PASCUAL [facility] [id number] Univers 10:01:00 13:00:00 [facility] 2022-05-27 2022-05-28 Emergency Diaz Silva [facility] [id number] [facility] 10:01:00 13:00:00 Lloyd Jones [id number] [facility] [id number] [facility] [id number] [facility] 081 Ramona 2022-05-27 2022-05-27 Outpatient AZRA LAGOS [id number] Azra 00:00:00 00:00:00 SURYA Wayneol d 2021-04-04 2021-04-04 Emergency X SINGER [facility] ERT [id number] Univers 10:50:00 10:50:00 [facility] Results Test Description Test Time Test Comments Results Result Comments Source Transthoracic echo (TTE) 2022-05-28 13:50:45 Test Item Value Reference Range Interpretation Comme nts Height (test code = 3741849908) in Weight (test code = 0426690581) lbs Systolic BP (test code = 2536967864) mmHg Diastolic BP (test code = 2353653042) mmHg Heart Rate (test code = 0975356761) bpm BSA (test code = 5347369605) 1.98 m2 Ao root annulus (test code = 4.0 cm 8153604644) Ao root diam (test code = 4144787307) 4.00 cm Aortic root (test code = 2258223021) 4.0 cm LVOT diameter (test code = 3734267562) 2.05 cm LVIDD (test code = 5029409022) 3.90 cm IVS (test code = 6625583492) 1.24 cm Interventricular Septum Diastolic 1.24 cm Thickness by 2D (test code = 2794176) LVPWD (test code = 3478235636) 1.24 cm PW (test code = 4021304727) 1.24 cm 0.6-1.1 EF(Teich) (test code = 1170487064) 58.50 % LVIDS (test code = 3512986468) 2.70 cm FS (test code = 5691380168) 30 % EF - 2D (test code = 63424526) 58.50 % LA size (test code = 8952082178) 3.0 cm LAV(MOD-sp4) (test code = 5031812780) 41.10 mL E wave decelartion time (test code = 0.19 s 0113378662) MV stenosis pressure 1/2 time (test 54.9 ms code = 4973106937) MV Peak E Beltran (test code = 2932587350) 80.4 cm/s MV Peak A Beltran (test code = 8287622462) 72.5 cm/s E/A ratio (test code = 6032393719) ratio MV Prop V (test code = 0611491255) 34.50 cm/s MV E/e' septal (test code = 14.7 cm/s 0072644566) Tapse (test code = 4123488893) 1.64 cm LVOT stroke volume (test code = 76.60 cm3 5028072771) LVOT peak beltran (test code = 2145836102) 112.1 cm/s LVOT mn grad (test code = 5064204475) mmHg AV LVOT peak gradient (test code = mmHg 4193862685) LVOT peak VTI (test code = 3472020493) 23.1 cm LV V1 mean (test code = 0440701913) 73.20 cm/s Aortic valve mean velocity (test code 105.9 cm/s = 0744807441) Ao peak beltran (test code = 9525862950) 147.7 cm/s Ao VTI (test code = 6653941101) 32.7 cm AV area by cont VTI (test code = 2.3 cm2 8289422219) AV area peak beltran (test code = 2.5 cm2 7109687005) Ao max PG (test code = 6559411829) 8.70 mm[Hg] AV peak gradient (test code = mmHg 1590550534) AV valve area (test code = 6479137531) 2.34 cm2 AV mean gradient (test code = mmHg 4975300177) Radiology Study observation (narrative) (test code = 53749-7) RICH (test code = RCIH) Formatting of this result is different from the original. ?Left?Ventricle: Left ventricle size is normal. Mildly increased wall thickness. Normal wall motion. Normal systolic function with a visually estimated EF of 55 - 60%. Normal diastolic function. ?Tricuspid?Valve: Trace transvalvular regurgitation. Insufficient regurgant jet to estimate RVSP. ?RA pressure is 0-5 mmHg. ?Right?Ventricle: Normal systolic function. ?Aorta: Mildly enlarged annulus. Left VentricleLeft ventricle size is normal. Mildly increased wall thickness. Normal wall motion. Normal systolic function with a visually estimated EF of 55 - 60%. Normal diastolic function.Right VentricleRight ventricle size is normal. Normal systolic function.Left AtriumLeft atrium size is normal.Right AtriumRight atrium size is normal.IVC/SVCRA pressure is 0-5 mmHg.Mitral ValveMitral valve structure is grossly normal. Trace transvalvular regurgitation.Tricuspid ValveTricuspid valve structure is grossly normal. Trace transvalvular regurgitation. Insufficient regurgant jet to estimate RVSP. RA pressure is 0-5 mmHg.Aortic ValveAortic valve opens well.Pulmonic ValveNot well visualized.Ascending AortaMildly enlarged annulus.PericardiumNo pericardial effusion.Study DetailsStudy quality was adequate. A complete echocardiogram was performed using 2D, color flow Doppler and spectral Doppler. [facility], [id number] 20:29:13 Test Item Value Reference Range Interpretation Comments dLDL Chol (test code = 106 mg/dL See_Comment [Au tomated message] 49527-1) The system [employer] generated this result transmit pina reference range : <=130. The refe rence range was not u sed to interpret th is result as normal/abnormal . Lab Interpretation (test Normal code = 55421-7) [facility] [id number] 15:41:42 Test Item Value Reference Interpretation Comments Range TROPONIN I (test 0.010 ng/mL See_Comment [Automated code = 6728201230) message] The system which generated this result transmitted reference range : <=0.034. The reference range was not used to interpret this result as normal/abnormal . RICH (test code = Reference (Normal) RICH) Range (defined by the 99th percentile reference limit): <= 0.034 ng/mL Note: Cardiac troponin begins to rise 3-4 hours after the onset of ischemia. Repeat in 4-6 hours if the sample was drawn within 3-4 hours of the onset of the symptom and found normal. Diagnosis of myocardial injury is made with acute changes in cTn concentrations with at least one serial sample above the 99th percentile upper reference limit (URL), taken together with the patient's clinical presentation. Biotin has been reported to cause a negative bias, interpret results relative to patient's use of biotin. Lab Interpretation Normal (test code = 12139-3) [facility] (68869)(TOTAL CHOLESTEROL, TRIGLYCERIDES, HDL)2022-05-27 15:40:36 Test Item Value Reference Range Interpretation Comments CHOL (test code = 194 mg/dL 120-200 6898770774) HDL (test code = 50 mg/dL See_Comment [Automated message] 5047592793) The system [employer] generated this result transmitted ref erence range: >=40. Th e reference range was not used to int erpret this result as normal/abnormal . HDLC RATIO (test code = See_Comment [Au tomated message] 5013770835) The system [employer] generated this result transmitted ref erence range: <=5.0. T he reference range was not used to int erpret this result as normal/abnormal . TRIG (test code = 454 mg/dL 30-170 H 1975008690) LDL CHOL (test code = Unable to calculate 87108-2) LDL due to elev ated triglyceride le beltran greater than 40 0 mg/dL. VLDL (test code = 91 mg/dL 5-60 H 2997719857) Lab Interpretation Abnormal (test code = 64359-5) [facility]OS[facility] HEMOGLOBIN (A1C)2022-05-27 15:40:21 Test Item Value Reference Range Interpretation Comments HGB A1C (test code = 5.7 % 4-5.7 4548-4) RICH (test code = RICH) Reference RangesNormal: <5.7%Prediabetes: 5.7 - 6.4%Diabetes: > 6.5% Lab Interpretation (test Normal code = 98118-6) [facility]MINAL [id number] 15:39:05 Test Item Value Reference Range Interpretation Comments NT-proBNP (test code 21 pg/mL See_Comment [Autom ated = 2463570032) message] The system which generated this result transmitted reference range : <=125. The reference range was not used to interpret this result as normal/abnormal . RICH (test code = RICH) Biotin has been reported to cause a negative bias, interpret results relative to patient's use of biotin. Lab Interpretation Normal (test code = 27950-4) [facility]20[facility] 15:31:44 Test Item Value Reference Range Interpretation Comments MAGNESIUM (test code = 8238947944) 1.5 mg/dL 1.7-2.4 L Lab Interpretation (test code = Abnormal 65498-4) [facility]COM. METABOLIC PANEL (49933)2022-05-27 15:31:24 Test Item Value Reference Range Interpretation Comments NA (test code = 136 mmol/L 135-145 1888440693) K (test code = 3.4 mmol/L 3.5-5 L 0741015975) CL (test code = 95 mmol/L 98-108 L 5981964775) CO2 TOTAL (test code = 29 mmol/L 23-31 0296095680) AGAP (test code = 2-16 8843497332) BUN (test code = 18 mg/dL 7-23 9000927663) GLUCOSE (test code = 126 mg/dL 70-110 H 2956395464) CREATININE (test code = 0.89 mg/dL 0.6-1.25 6671644205) TOTAL BILI (test code = 1.1 mg/dL 0.1-1.8 9203526876) CALCIUM (test code = 9.3 mg/dL 8.6-10.6 2605460830) T PROTEIN (test code = 7.6 g/dL 6.3-8.2 2429510577) ALBUMIN (test code = 4.8 g/dL 3.5-5 6198667305) ALK PHOS (test code = 102 U/L 34-122 9040877677) ALTv (test code = 28 U/L 5-50 1742-6) AST(SGOT) (test code = 33 U/L 13-40 6293739866) eGFR (test code = mL/min/1.73m2 1732147617) RICH (test code = RICH) Association of Glomerular Filtration Rate (GFR) and Staging of Kidney Disease* + --+ --+ ------+| GFR (mL/min/1.73 m2) ?| With Kidney Damage ?| ?Without Kidney Damage+ --------+ --------+ +| ?>90 ?| ?Stage one ?| ? Normal ?+ ---+ ---+ -------+| ?60-89 ?| ?Stage two ?| ? Decreased GFR ? + --+ --+ ------+| ?30-59 ?| ?Stage three ?| ? Stage three ? + --+ --+ ------+| ?15-29 ?| ?Stage four ? | ? Stage four ?+ ---+ ---+ -------+| ?<15 (or dialysis) ? ?| ?Stage five ? | ? Stage five ?+ ---+ ---+ -------+ *Each stage assumes the associated GFR level has been in effect for at least three months. ?Stages 1 to 5, with or without kidney disease, indicate chronic kidney disease. Notes: Determination of stages one and two (with eGFR >59mL/min/1.73 m2) requires estimation of kidney damage for at least three months as defined by structural or functional abnormalities of the kidney, manifested by either:Pathological abnormalities or Markers of kidney damage (including abnormalities in the composition of the blood or urine or abnormalities in imaging tests). Lab Interpretation Abnormal (test code = 53679-9) [facility] 15:31:03 Test Item Value Reference Range Interpretation Comments LIPASE (test code = 6072315001) 83 U/L 0-220 Lab Interpretation (test code = Normal 72980-7) [facility] HospitalProthrombin Time / [id number] 15:31:03 Test Item Value Reference Range Interpretation Comments PROTIME PATIENT (test See_Comment [Auto mated message] code = 5964-2) The system wh ich generated this result transmitted ref erence range: 12.0 - 1 4.7 Seconds. The re ference range was not u sed to interpret this result as normal/abnor mal. INR (test code = 6301-6) Nor mal INR <1.1; Warfarin Therap eutic range 2.0 to 3. 0 or 2.5 to 3.5, dep ending upon the indica tions. Lab Interpretation (test Normal code = 42178-2) [facility] WITH [id number] 15:22:04 Test Item Value Reference Range Interpretation Comments WBC (test code = See_Comment [Automated 5190-2) message] The sy stem which generated this result transmitted reference range : 4.20 - 10.70 10*3/?L. The reference range was not used to interpret this result as normal/abnormal . RBC (test code = See_Comment [Automated 789-8) message] The sy stem which generated this result transmitted reference range : 4.26 - 5.52 10*6/?L. The reference range was not used to interpret this result as normal/abnormal . HGB (test code = 15.4 g/dL 12.2-16.4 718-7) HCT (test code = 45.2 % 38.4-49.3 4544-3) MCV (test code = 87.1 fL 81.7-95.6 787-2) MCH (test code = 29.7 pg 26.1-32.7 785-6) MCHC (test code = 34.1 g/dL 31.2-35 786-4) RDW-SD (test code = 41.8 fL 38.5-51.6 97120-8) RDW-CV (test code = 13.2 % 12.1-15.4 788-0) PLT (test code = See_Comment [Automated 777-3) message] The sy stem which generated this result transmitted reference range : 150 - 328 10*3/ ?L. The reference r marianna was not used to interpret this result as normal/abnormal . MPV (test code = 9.6 fL 9.8-13 L 36846-1) NRBC/100 WBC (test See_Comment [Automat ed code = 6032318367) message] The system which generated this result transmitted reference range : 0.0 - 10.0 /100 WBCs. The refer ence range was not u sed to interpret th is result as normal/abnormal . NRBC x10^3 (test code See_Comment [Auto mated = 4663263205) message] The s ystem which generated this result transmitted reference range : 10*3/?L. The reference range was not used to interpret this result as normal/abnormal . GRAN MAT (NEUT) % 64.1 % (test code = 770-8) IMM GRAN % (test code 0.40 % = 2591319040) LYMPH % (test code = 21.6 % 736-9) MONO % (test code = 11.4 % 5905-5) EOS % (test code = 2.2 % 713-8) BASO % (test code = 0.3 % 706-2) GRAN MAT x10^3(ANC) 5.73 10*3/uL 1.99-6.95 (test code = 0316346322) IMM GRAN x10^3 (test 0.04 10*3/uL 0-0.06 code = 6708659306) LYMPH x10^3 (test code 1.93 10*3/uL 1.09-3.23 = 731-0) MONO x10^3 (test code 1.02 10*3/uL 0.36-1.02 = 742-7) EOS x10^3 (test code = 0.20 10*3/uL 0.06-0.53 711-2) BASO x10^3 (test code 0.03 10*3/uL 0.01-0.09 = 704-7) Lab Interpretation Abnormal (test code = 78543-8) [facility]"
[2022-12-01 13:38] LABS: Absolute Lymphocytes (CBC) 1.3 K/uL (0.7-4.9); Hematocrit 44.8 % (39.6-49.0); Lymphocytes % 18.9 % (15.3-44.8); MCV 88.8 fL (80-100); MPV 7.3 fL (7.6-11.3); RBC Red Blood Cell Count 5.04 M/uL (4.33-5.43)
[2022-12-01 13:55] LABS: Albumin 3.5 g/dL (3.4-5.0); Bilirubin Total 0.6 mg/dL (0.2-1.0); Potassium 3.6 mmol/L (3.5-5.1); Protein, Total 7.8 g/dL (6.4-8.2)
[2022-12-01 14:12] LABS: Urine Blood Trace-intact (Negative); Urine Glucose Negative (Negative); Urine Protein Negative (Negative); Urine Specific Gravity 1.025 (1.005-1.030)
--- NOTE | 2022-12-01 14:50 | RAD REPORT ---
EXAM DESCRIPTION: CTAbdomen Pelvis W Contrast - 12/01/2022 2:32 pm CLINICAL HISTORY: llq abdominal pain COMPARISON: No comparisons TECHNIQUE: CT of the abdomen and pelvis was performed. All CT scans are performed using dose optimization technique as appropriate and may include automated exposure control or mA/KV adjustment according to patient size. FINDINGS: Lower chest: No acute abnormality. Liver: Hepatic steatosis. Biliary: No biliary ductal dilatation. Stomach: No significant focal abnormality. Duodenum: No significant focal abnormality. Pancreas: No significant abnormality. Spleen: No significant abnormality. Adrenal: No suspicious lesions. Kidney/ureter: No hydronephrosis. No renal calculi. Retroperitoneum: No retroperitoneal adenopathy. Vascular: No aneurysm. Bowel: No significant focal abnormality. Normal appendix. Peritoneum: No ascites or free air. Bladder: Grossly unremarkable. Reproductive: No adnexal masses. Bones: No acute fracture. Other: n/a IMPRESSION: No acute intra-abdominal or pelvic finding. Normal appendix.
--- NOTE | 2022-12-01 16:39 | EDPHYS ---
Physician Documentation [facility] Name: Marcelo Ramirez Age: 57 yrs Sex: Male : 1965 Arrival Date: 12/01/2022 Time: 12:52 Bed 11 Private MD: ED Physician Noé Blakely HPI: 12/01 13:13 This 57 yrs old Male presents to ER via Ambulatory with complaints of Back jmm Pain, Abdominal Pain, Urinary Frequency. 13:13 The patient presents with pain that is acute. The symptoms are located in the low back. jmm This is a 57 year old male with a history of copd, htn that presents to the eD with complaints of left flank pain radiating into his lower abdomen bilaterally. Denies vomiting, diarrhea but states having some dysuria. . Historical: - Allergies: 13:11 No Known Allergies; ss - PMHx: 13:11 COPD; Hypertensive disorder; ss - PSHx: 13:11 None; ss - Immunization history:: Client reports having NOT received the Covid vaccine. - Social history:: Smoking status: Patient denies any tobacco usage or history of. ROS: 13:13 Constitutional: Negative for fever, chills, and weight loss, Cardiovascular: Negative jmm for chest pain, palpitations, and edema, Respiratory: Negative for shortness of breath, cough, wheezing, and pleuritic chest pain. 13:13 Back: Positive for flank pain, on the left. 13:13 All other systems are negative. Exam: 13:13 Constitutional: This is a well developed, well nourished patient who is awake, alert, jmm and in no acute distress. Head/Face: atraumatic. Eyes: EOMI, no conjunctival erythema appreciated ENT: Moist Mucus Membranes Neck: Trachea midline, Supple Chest/axilla: Normal chest wall appearance and motion. Cardiovascular: Regular rate and rhythm. No edema appreciated Respiratory: Normal respirations, no respiratory distress appreciated 13:13 Abdomen/GI: Inspection: abdomen appears normal, Bowel sounds: normal. 13:13 Back: CVA tenderness, is absent. 13:13 Musculoskeletal/extremity: ROM: intact in all extremities. 13:13 Skin: Appearance: Color: normal in color. 13:13 Neuro: Orientation: is normal, Mentation: is normal, Memory: is normal. 13:13 Psych: Behavior/mood is pleasant, cooperative. Vital Signs: 13:09 Pulse 90; Resp 18; Temp 98.7; Pulse Ox 98% ; Weight 86.18 kg; Height 5 ft. 7 in. ss (170.18 cm); Pain 7/10; 13:11 BP 153 / 90; ss 15:05 BP 148 / 99; Pulse 71; Resp 16; Pulse Ox 100% ; mb9 16:51 BP 142 / 98; Pulse 68; Resp 17; Pulse Ox 100% ; iw 13:09 Body Mass Index 29.76 (86.18 kg, 170.18 cm) ss MDM: 13:29 Patient medically screened. [facility] 16:34 Differential diagnosis: Abdominal Aortic Aneurysm. Data reviewed: vital signs, nurses [facility] notes. Management of patient was discussed with the following:. I considered the following discharge prescriptions or medication management in the emergency department. Counseling: I had a detailed discussion with the patient and/or guardian regarding: the historical points, exam findings, and any diagnostic results supporting the discharge/admit diagnosis, lab results, radiology results, the need for outpatient follow up, to return to the emergency department if symptoms worsen or persist or if there are any questions or concerns that arise at home. ED course: Labs and imaging studies unremarkable. Patient is alert and non toxic in appearance in the ED. Advised to follow up with pcp and otherwise given strict return precautions. Patient understood and agrees with the plan of care, . 12/01 13:13 Order name: CBC with Diff [facility] 12/01 13:13 Order name: CMP [facility] 12/01 13:13 Order name: Lipase [facility] 12/01 13:42 Order name: CBC with Automated Diff; Complete Time: 13:50 [facility] 12/01 13:55 Order name: Comprehensive Metabolic Panel; Complete Time: 15:34 [facility] 12/01 13:55 Order name: Lipase; Complete Time: 15:34 [facility] 12/01 13:13 Order name: IV Saline Lock; Complete Time: 13:35 [facility] 12/01 13:13 Order name: Labs collected and sent; Complete Time: 13:35 [facility] 12/01 13:13 Order name: Urine Dipstick-Ancillary (obtain specimen); Complete Time: 14:19 [facility] 12/01 13:50 Order name: CT Abd/Pelvis - IV Contrast Only [facility] 12/01 14:13 Order name: Urine Dipstick-Ancillary; Complete Time: 15:34 [facility] 12/01 14:50 Order name: CT; Complete Time: 15:34 EDMS Administered Medications: No medications were administered Disposition: 18:42 Co-signature as Attending Physician, Noé Blakely DO I was immediately available on-site ms3 in the Emergency Department for consultation in the care of the patient. Disposition Summary: 12/01/22 16:38 Discharge Ordered Location: Home [facility] Condition: Stable [facility] Diagnosis - Dysuria jmm - Flank Pain [facility] Followup: jmm - With: Private Physician - When: 2 - 3 days - Reason: Recheck today's complaints, Continuance of care, Re-evaluation by your physician Followup: jmm - With: Phan Currie MD - When: 2 - 3 days - Reason: Recheck today's complaints, Continuance of care, Re-evaluation by your physician Followup: jmm - With: Roberth Thomas MD - When: 2 - 3 days - Reason: Recheck today's complaints, Continuance of care, Re-evaluation by your physician Discharge Instructions: - Discharge Summary Sheet jmm - Abdominal Pain, Adult jmm - Dysuria jmm - Flank Pain, Adult m Forms: - Medication Reconciliation Form [facility] - Thank You Letter [facility] - Antibiotic Education [facility] - Prescription Opioid Use [facility] Prescriptions: - orphenadrine citrate 100 mg Oral Tablet Sustained Release - take 1 tablet by ORAL route 2 times per day As needed; 20 tablet; Refills: 0, [facility] Product Selection Permitted - dicyclomine 20 mg Oral Tablet - take 1 tablet by ORAL route 4 times per day; 20 tablet; Refills: 0, Product [facility] Selection Permitted Signatures: Dispatcher [employer] EDMS Lauro Markham PA PA jmm Smirch, Shelby, RN RN Noé Sandoval DO DO ms3
--- NOTE | 2022-12-01 16:39 | ER ---
Nurse's Notes [facility] Name: Marcelo Ramirez Age: 57 yrs Sex: Male : 1965 Arrival Date: 12/01/2022 Time: 12:52 Bed 11 Private MD: Diagnosis: Dysuria;Flank Pain Presentation: 12/01 13:09 Chief complaint: Patient states: intermittent body aches, lower abd pain,low back pain ss and urinary frequency x 5 days. Coronavirus screen: Client denies travel out of the [place] in the last 14 days. Ebola Screen: Patient denies exposure to infectious person. Patient denies travel to an Ebola-affected area in the 21 days before illness onset. Initial Sepsis Screen: Does the patient meet any 2 criteria? No. Patient's initial sepsis screen is negative. Does the patient have a suspected source of infection? No. Patient's initial sepsis screen is negative. Risk Assessment: Do you want to hurt yourself or someone else? Patient reports no desire to harm self or others. Onset of symptoms was November 25, 2022. 13:09 Method Of Arrival: Ambulatory ss 13:09 Acuity: BROOKE 3 ss Historical: - Allergies: 13:11 No Known Allergies; ss - PMHx: 13:11 COPD; Hypertensive disorder; ss - PSHx: 13:11 None; ss - Immunization history:: Client reports having NOT received the Covid vaccine. - Social history:: Smoking status: Patient denies any tobacco usage or history of. Screenin:24 [facility] ED Fall Risk Assessment (Adult) History of falling in the last 3 months, mb9 including since admission No falls in past 3 months (0 pts) Confusion or Disorientation No (0 pts) Intoxicated or Sedated No (0 pts) Impaired Gait No (0 pts) Mobility Assist Device Used No (0 pt) Altered Elimination No (0 pt) Score/Fall Risk Level 0 - 2 = Low Risk Oriented to surroundings, Maintained a safe environment, Educated pt \T\ family on fall prevention, incl call for assistance when getting out of bed. Abuse screen: Denies threats or abuse. Nutritional screening: No deficits noted. Tuberculosis screening: No symptoms or risk factors identified. Assessment: 14:05 General: Appears comfortable, Behavior is calm, cooperative, appropriate for age. Pain: mb9 Complains of pain in abdomen Pain radiates to right lower flank Pain currently is 2 out of 10 on a pain scale. Quality of pain is described as aching, Pain began 2-3 days ago. Neuro: Level of Consciousness is awake, alert, obeys commands, Oriented to person, place, time, situation, Appropriate for age. Cardiovascular: Patient's skin is warm and dry. Respiratory: Airway is patent Respiratory effort is even, unlabored, Respiratory pattern is regular, symmetrical. GI: No signs and/or symptoms were reported involving the gastrointestinal system. : Urine is clear, Reports urinary frequency, Denies burning with urination. EENT: No signs and/or symptoms were reported regarding the EENT system. Derm: Skin is pink, warm \T\ dry. Musculoskeletal: Range of motion: intact in all extremities. 15:58 Reassessment: No changes from previously documented assessment. Patient and/or family mb9 updated on plan of care and expected duration. Pain level reassessed. Patient is alert, oriented x 3, equal unlabored respirations, skin warm/dry/pink. 16:51 Reassessment: No changes from previously documented assessment. Patient and/or family iw updated on plan of care and expected duration. Pain level reassessed. Patient is alert, oriented x 3, equal unlabored respirations, skin warm/dry/pink. Vital Signs: 13:09 Pulse 90; Resp 18; Temp 98.7; Pulse Ox 98% ; Weight 86.18 kg; Height 5 ft. 7 in. ss (170.18 cm); Pain 7/10; 13:11 BP 153 / 90; ss 15:05 BP 148 / 99; Pulse 71; Resp 16; Pulse Ox 100% ; mb9 16:51 BP 142 / 98; Pulse 68; Resp 17; Pulse Ox 100% ; iw 13:09 Body Mass Index 29.76 (86.18 kg, 170.18 cm) ED Course: 12:52 Patient arrived in ED. as 12:55 Lauro Markham PA is PHCP. baljeet 12:55 Noé Blakely DO is Attending Physician. jmm 13:11 Triage completed. ss 13:11 Arm band placed on left wrist. ss 13:35 Inserted saline lock: 20 gauge in right antecubital area, using aseptic technique. zm Blood collected. 13:35 CBC with Diff Sent. zm 13:35 CMP Sent. zm 13:35 Lipase Sent. zm 14:00 Placed in gown. Bed in low position. Call light in reach. Side rails up X 1. Client mb9 placed on continuous cardiac and pulse oximetry monitoring. NIBP monitoring applied. vehicle monitor technician on. 14:03 Lorrie Soares, RN is Primary Nurse. mb9 14:26 No provider procedures requiring assistance completed. mb9 16:40 Phan Currie MD is Referral Physician. jmm 16:40 Roberth Thomas MD is Referral Physician. m 16:52 IV discontinued, intact, bleeding controlled, No redness/swelling at site. Pressure iw dressing applied. Administered Medications: No medications were administered Medication: 14:26 VIS not applicable for this client. mb9 Outcome: 16:38 Discharge ordered by . [facility] 16:52 Discharged to home ambulatory. iw 16:52 Condition: stable 16:52 Discharge instructions given to patient, Instructed on discharge instructions, follow up and referral plans. Demonstrated understanding of instructions, follow-up care, medications, Prescriptions given X 2. 16:52 Patient left the ED. iw Signatures: Lauro Markham PA PA jmm Martinez, Amelia as Williams, Irene, Suzette Winn RN, Lashay Nieto RN, Mary Beth, RN RN mb9
[2022-12-01 17:13] VITALS: TEMP 98.7; O2SAT 98
== END 2022-12-01 16:52 | disposition home or self-care (01) ==
LOC: ER 12:51
DX: R30.0 Dysuria (principal); R10.9 Unspecified abdominal pain; I10 Essential (primary) hypertension; J44.9 Chronic obstructive pulmonary disease, unspecified
CPT/HCPCS: 85025; 36415; 81003; 83690; 80053; 74177; 99284; Q9967

== ENCOUNTER 2023-08-02 14:17 | Emergency (ER) | payer BC ==
--- OUTSIDE RECORDS SUMMARY | 2023-08-02 14:20 | XMS REPORT | Continuity of Care Document ---
:1965 Author Organization [facility] t Address [address] [address] [place] [address] Care Team Providers Name Role Phone Asked, No Pcp Primary Care Physician Unavailable Doctor Unassigned, [place] Attending Clinician Unavailable Pietro LARIOS, Marisa KAngeliaHAngelia Attending Clinician LLOYD JONES Attending Clinician Unavailable Diaz Silva DO Attending Clinician Lolyd Jones MD Attending Clinician SURYA LAGOS Attending Clinician Unavailable DIAZ SILVA Attending Clinician Unavailable LLOYD JONES Admitting Clinician Unavailable Lloyd Jones MD Admitting Clinician Payers Payer Name Policy Type Policy Number Effective Date Expiration Date S deanna BS 2 [id number] 2022 00:00:00 Problems Condition Condition Condition Status [...] nivers ia ia 8-20 ity of 00:00: [place] [id number] Medical [place] Chest Chest Disease Active Univers pain, pain, 8-19 ity of [place] type [facility] Obesity Obesity Disease Active Univers (BMI (BMI 8-19 ity of 30-39.9) 30-39.9) 00:00: [address] Allergies, Adverse Reactions, Alerts Allergy Allergy Status Severity Reaction(s) Onset Inactive Treating Comm ents Source Name Type Date Date Clinician NO KNOWN Drug Active Univers ALLERGIE Class ity of S [facility] Social History Social Habit Start Date Stop Date Quantity Comments Source History of tobacco Passive smoker Un iversity of use [facility] Sexual orientation Method ist Hospital Exposure to 2022-05-17 2022-05-27 Not sure [facility] SARS-CoV-2 (event) 00:00:00 10:07:00 [facility] History of Social 2022-05-27 2022-05-27 Univers ity of function 00:00:00 00:00:00 [facility] Tobacco use and 2022-05-27 2022-05-27 Smokeless Universit y of exposure 00:00:00 00:00:00 tobacco non-user [facility] Sex Assigned At [birth year] [facility] Smoking Status Start Date Stop Date Source Tobacco smoking [facility] consumption unknown Ex-smoker 2022-05-27 00:00:00 2022-05-27 [place] 00:00:00 [facility] Medications Ordered Filled Start Stop Current Ordering Indication Dosage Frequency Signature Comments Components Source Medication Medication Date Date Medication? Clinician (SIG) Name Name hydroCHLORO Yes 12.5mg Take 12.5 Univers thiazide 8-22 mg by ity of 12.5 mg 01:00: mouth in [place] capsule 04 the Medical morning. Branch hydroCHLORO Yes 12.5mg Take 12.5 Univers thiazide 8-22 mg by ity of 12.5 mg 01:00: mouth in [place] capsule 04 the Medical morning. Branch fenofibrate 2021- No [id number] 134mg Take 1 Univers micronized 05-29 capsule by it y of 134 mg 00:00: 04:59 mouth in [place] capsule 00 :00 the Medical morning Branch for 30 days. fenofibrate 2021- No [id number] 134mg Take 1 Univers micronized 05-29 capsule by it y of 134 mg 00:00: 04:59 mouth in [place] capsule 00 :00 the [facility] morning Branch for 30 days. fenofibrate Yes 134mg 134 mg, Un jacinto micronized 8-20 Oral, ity of (LOFIBRA) 14:00: DAILY, [place] capsule 134 00 First dose Me dical mg on [facility] 05/28/22 at 0900, Until Discontinu ed, Routine hydroCHLORO Yes 12.5mg 12.5 mg, Univers thiazide 8-20 Oral, ity of (ESIDRIX) 14:00: DAILY, [place] tablet 12.5 00 First dose Me dical mg on [facility] 05/28/22 at 0900, Until Discontinu ed carvediloL Yes 6.25mg 6.25 mg, U nivers (COREG) 8-20 Oral, BID ity of tablet 6.25 13:15: [place] 00 First dose Medical on [facility] 05/28/22 at 0815, Until Discontinu ed, Routine hydroCHLORO Yes 12.5mg Take 12.5 Univers thiazide 8-20 mg by ity of 12.5 mg 13:03: mouth in [place] capsule 19 the Medical morning. Branch magnesium 2021- No 2g 2 g, IV Univ ers sulfate in 05-28 Piggyback, it y of water 2 01:15: 01:40 Administer Miguel Angel as gram/50 mL 00 :00 over 60 Medica l (4 %) Minutes, Branch infusion 2 ONCE, 1 g dose, On Mon05/27/22 at 2015, Routine carvediloL 2021- No [id number] 6.25mg Take 1 Univers 6.25 mg 05-28 tablet by ity of tablet 00:00: 04:59 mouth in [place] 00 :00 the Medical morning Branch and 1 tablet in the evening. Take with meals. Do all this for 30 days. aspirin 81 2021- No [id number] 81mg Take 1 Univers mg chewable 05-28 tablet by it y of tablet 00:00: 04:59 mouth in [place] 00 :00 [facility] for 30 days. carvediloL 2021- No [id number] 6.25mg Take 1 Univers 6.25 mg 05-28 tablet by ity of tablet 00:00: 04:59 mouth in [place] 00 :00 [facility] and 1 tablet in the evening. Take with meals. Do all this for 30 days. aspirin 81 2021- No [id number] 81mg Take 1 Univers mg chewable 05-28 tablet by it y of tablet 00:00: 04:59 mouth in [place] 00 :00 [facility] for 30 days. nitroglycer Yes .4mg 0.4 mg, Uni vers in [...] 05-27 Oral, ity of (TYLENOL) 18:03: Q6HPRN, [place] tablet 650 34 Starting Medic al mg on Mon Branch 05/27/22 at 1303, Until Discontinu ed, Routine, Pain (scale 1-3) acetaminoph 2021- No 1000mg 1,000 mg, Univers en 05-27 Oral, ity of (TYLENOL) 18:00: 17:48 ONCE, [place] tablet [place] :[place] dose, On Medical 1,000 mg Fri Branch 05/27/22 at 1300, RUDDY ofloxacin 2021- No [id number] 5[drp] Place 5 Univers 0.3 % otic 04-04 Drops in ity of drops 00:00: 00:00 left ear 2 [place] 00 :00 (two) Medical times Branch daily. Vital Signs Vital Name Observation Time Observation Value Comments Source Systolic blood 2022-05-28 16:18:00 145 mm[Hg] [facility] Diastolic blood 2022-05-28 16:18:00 98 mm[Hg] [facility] Heart rate 2022-05-28 16:18:00 55 /min [facility] Body temperature 2022-05-28 16:18:00 36.28 [facility] [place] [facility] Respiratory rate 2022-05-28 16:18:00 16 /min [facility] Oxygen saturation in 2022-05-28 16:18:00 96 /min [facility] Arterial blood by [facility] [place] [facility] Pulse oximetry Branch Body height 2022-05-27 18:14:00 170.2 cm [facility] Body weight 2022-05-27 18:14:00 88.179 kg [facility] BMI 2022-05-27 18:14:00 30.45 kg/m2 [facility] Procedures Procedure Date / Time Performing Clinician Source Performed MAGNESIUM 2022-05-28 09:00:[address] [facility] TROPONIN I 2022-05-28 09:00:00 Marisa Westbrook [facility] BASIC METABOLIC PANEL 2022-05-28 09:00:00 Lloyd Jones [facility] (NA, K, CL, CO2, Medical Branch GLUCOSE, BUN, CREATININE, CA) CBC WITH DIFF 2022-05-28 09:[facility] 2022-05-28 09:00:00 Mar[facility] TROPONIN I 2022-05-27 21:09:[address] [facility] TRANSTHORACIC ECHO (TTE) 2022-05-27 18:52:43 Lloyd Jones [facility] COMPLETE Medical Branch XR CHEST 1 VW 2022-05-27 15:16:07 Singer [facility] TROPONIN I 2022-05-27 15:09:00 Singer [facility] COMP. METABOLIC PANEL 2022-05-27 15:09:00 Singer [facility] ([id number]) Medical Branch LIPID PANEL 2022-05-27 15:09:00 Singer [facility] [address] ([id number])(TOTAL Medical Branch CHOLESTEROL, TRIGLYCERIDES, HDL) CBC WITH DIFF 2022-05-27 15:09:00 Singer [facility] GLYCOSYLATED HEMOGLOBIN 2022-05-27 15:09:00 Singer [facility] (A1C) Medical [place] PROTHROMBIN TIME / INR 2022-05-27 15:09:00 Singer Diaz [facility] N-TERMINAL PRO-BNP 2022-05-27 15:09:00 Diaz Silva [facility] LOW-DENSITY LIPOPROTEIN, 2022-05-27 15:09:00 Diaz Silva [facility] DIRECT Medical [place] COVID-19 (ID NOW RAPID 2022-05-27 15:09:00 Diaz Silva [facility] TESTING) Medical Branch LIPASE 2022-05-27 15:09:00 Singer [facility] MAGNESIUM 2022-05-27 15:09:00 Singer [facility] HB ECG ROUTINE & RHYTHM 2022-05-27 15:04:59 Singer [facility] STRIP Medical Branch CONSENT/REFUSAL FOR 2022-05-27 14:53:13 Doctor Unassigned, No Un [facility] DIAGNOSIS AND TREATMENT Name Medical Branch Plan of Care Planned Activity Planned Date Details Comments Source Future Scheduled 2023-07-21 Screening for [facility] Test 22:56:01 malignant neoplasm of colon (procedure) [code = 822065024] Future Scheduled 2023-07-21 SHINGLES VACCINES (1 Met [facility] Test 22:56:01 of 2) [code = SHINGLES VACCINES (1 of 2)] Future Scheduled 2023-07-21 INFLUENZA VACCINE Method [facility] Test 22:56:01 (#1) [code = INFLUENZA VACCINE (#1)] Future Scheduled 2023-07-21 RSV VACCINES > 60 YR Met [facility] Test 22:56:01 (1 - 1-dose 60+ series) [code = RSV VACCINES > 60 YR (1 - 1-dose 60+ series)] Future Scheduled 2023-07-21 Screening for [facility] Test 22:56:01 malignant neoplasm of colon (procedure) [code = 293063177] Future Scheduled 2023-07-21 Screening for [facility] Test 22:56:01 malignant neoplasm of colon (procedure) [code = 005498152] Future Scheduled 2023-07-21 Screening for [facility] Test 22:56:01 malignant neoplasm of colon (procedure) [code = 895332690] Future Scheduled 2023-07-21 COVID-19 VACCINE (#1) [facility] Test 22:56:01 [code = COVID-19 VACCINE (#1)] Future Scheduled 2023-07-21 Screening for [facility] Test 22:56:01 malignant neoplasm of colon (procedure) [code = 905906426] Future Scheduled 2023-01-07 INFLUENZA VACCINE Method [facility] Test 23:26:01 [code = INFLUENZA VACCINE] Future Scheduled 2023-01-07 COVID-19 VACCINE (#1) [facility] Test 23:26:01 [code = COVID-19 VACCINE (#1)] Future Scheduled 2023-01-07 COLONOSCOPY SCREENING [facility] Test 23:26:01 [code = COLONOSCOPY SCREENING] Future Scheduled 2023-01-07 SHINGLES VACCINES (1 Met [facility] Test 23:26:01 of 2) [code = SHINGLES VACCINES (1 of 2)] Future Scheduled 2022-09-24 INFLUENZA VACCINE [facility] Test 15:09:59 [code = INFLUENZA VACCINE] Future Scheduled 2022-09-24 COVID-19 VACCINE (#1) [facility] Test 15:09:59 [code = COVID-19 VACCINE (#1)] Future Scheduled 2022-09-24 COLONOSCOPY SCREENING [facility] Test 15:09:59 [code = COLONOSCOPY SCREENING] Future Scheduled 2022-09-24 SHINGLES VACCINES (1 Met [facility] Test 15:09:59 of 2) [code = SHINGLES VACCINES (1 of 2)] Encounters Start End Encounter Admission Attending Care Care Encounter Source Date/Time Date/Time Type Type Clinicians Facility Department ID 2022-05-30 2022-05-30 Patient Doctor MARION [id number] Univers 00:00:00 00:00:00 Secure Msg Unassigned, CARMINA [id number] ity of [facility] [id number] Miguel Angel as [id number] [facility] 019 Branch 2022-05-30 2022-05-30 Telephone Pietro [facility] [id number] [facility] 00:00:00 00:00:00 Marisa SALGUERO [id number] ity of [place] [id number] [place] [id number] [facility] 2022-05-27 2022-05-28 Outpatient X PASCUAL HIYESSICA ARNOL [id number] Univers 10:01:00 13:00:00 LLOYD [facility] [place] [facility] 2022-05-27 2022-05-28 Emergency Diaz Silva [facility] [id number] Univers 10:01:00 13:00:00 Lloyd Jones [id number] ity of [place] [id number] [facility] [address] [place] 2022-05-27 2022-05-27 Outpatient AZRA LAGOS [id number] [facility] 00:00:00 00:00:00 SURYA darnell 2021-04-04 2021-04-04 Emergency X SINGER HIYESSICA ERT [id number] Univers 10:50:00 10:50:00 DIAZ [facility] [place] [facility] Results Test Description Test Time Test Comments Results Result Comments Source Transthoracic echo (TTE) 2022-05-28 13:50:45 Test Item Value Reference Range Interpretation Comme nts Height (test code = 7918107262) in Weight (test code = 0207663337) lbs Systolic BP (test code = 7878399321) mmHg Diastolic BP (test code = 2621290168) mmHg Heart Rate (test code = 7963022951) bpm BSA (test code = 2632091790) 1.98 m2 Ao root annulus (test code = 4.0 cm 5441315164) Ao root diam (test code = 3759385167) 4.00 cm Aortic root (test code = 3223431246) 4.0 cm LVOT diameter (test code = 4835537027) 2.05 cm LVIDD (test code = 8109772015) 3.90 cm IVS (test code = 2400618039) 1.24 cm Interventricular Septum Diastolic 1.24 cm Thickness by 2D (test code = 5182424) LVPWD (test code = 3320025321) 1.24 cm PW (test code = 3935702243) 1.24 cm 0.6-1.1 EF(Teich) (test code = 7235196447) 58.50 % LVIDS (test code = 2483649406) 2.70 cm FS (test code = 2968531577) 30 % EF - 2D (test code = 14473818) 58.50 % LA size (test code = 3781964860) 3.0 cm LAV(MOD-sp4) (test code = 7748163794) 41.10 mL E wave decelartion time (test code = 0.19 s 8157171469) MV stenosis pressure 1/2 time (test 54.9 ms code = 9355321171) MV Peak E Beltran (test code = 0313470690) 80.4 cm/s MV Peak A Beltran (test code = 0258888017) 72.5 cm/s E/A ratio (test code = 5425850034) ratio MV Prop V (test code = 6523440586) 34.50 cm/s MV E/e' septal (test code = 14.7 cm/s 9622532925) Tapse (test code = 3044455884) 1.64 cm LVOT stroke volume (test code = 76.60 cm3 3396698888) LVOT peak beltran (test code = 8276550128) 112.1 cm/s LVOT mn grad (test code = 9761472388) mmHg AV LVOT peak gradient (test code = mmHg 8766012181) LVOT peak VTI (test code = 4259490412) 23.1 cm LV V1 mean (test code = 1466600818) 73.20 cm/s Aortic valve mean velocity (test code 105.9 cm/s = 4899361978) Ao peak beltran (test code = 9419039897) 147.7 cm/s Ao VTI (test code = 3221426015) 32.7 cm AV area by cont VTI (test code = 2.3 cm2 8177829280) AV area peak beltran (test code = 2.5 cm2 7822731598) Ao max PG (test code = 3240832337) 8.70 mm[Hg] AV peak gradient (test code = mmHg 6902527129) AV valve area (test code = 2796365725) 2.34 cm2 AV mean gradient (test code = mmHg 6406379081) Radiology Study observation (narrative) (test code = 73566-6) RICH (test code = RICH) Formatting of this result is different from [...] 2D, color flow Doppler and spectral Doppler. [facility]-DENSITY LIPOPROTEIN, [id number] 20:29:13 Test Item Value Reference Range Interpretation Comments dLDL Chol (test code = 106 mg/dL See_Comment [Aut omated message] 38323-9) The system [employer] generated this result transmit pina reference range : <=130. The refe rence range was not u sed to interpret th is result as normal/abnormal . Lab Interpretation (test Normal code = 39465-6) [facility] [id number] 15:41:42 Test Item Value Reference Interpretation Comments Range TROPONIN I (test 0.010 ng/mL See_Comment [Automated code = 3284425253) message] The system which generated this result [...] biotin. Lab Interpretation Normal (test code = 87763-9) [facility] (27399)(TOTAL CHOLESTEROL, TRIGLYCERIDES, HDL)2022-05-27 15:40:36 Test Item Value Reference Range Interpretation Comments CHOL (test code = 194 mg/dL 120-200 0568331246) HDL (test code = 50 mg/dL See_Comment [Automated message] 8695909247) The system [employer] generated this result transmitted ref erence range: >=40. Th e reference range was not used to int erpret this result as normal/abnormal . HDLC RATIO (test code = See_Comment [Au tomated message] 8993412569) The system [employer] generated this result transmitted ref erence range: <=5.0. T he reference range was not used to int erpret this result as normal/abnormal . TRIG (test code = 454 mg/dL 30-170 H 0542162520) LDL CHOL (test code = Unable to calculate 09285-1) LDL due to elev ated triglyceride le beltran greater than 40 0 mg/dL. VLDL (test code = 91 mg/dL 5-60 H 7121886677) Lab Interpretation Abnormal (test code = 66027-2) [facility] (A1C)2022-05-27 15:40:21 Test Item Value Reference Range Interpretation Comments HGB A1C (test code = 5.7 % 4-5.7 4548-4) RICH (test code = RICH) Reference RangesNormal: <5.7%Prediabetes: 5.7 - 6.4%Diabetes: > 6.5% Lab Interpretation (test Normal code = 81093-5) [facility]-TERMINAL [id number] 15:39:05 Test Item Value Reference Range Interpretation Comments NT-proBNP (test code 21 pg/mL See_Comment [Autom ated = 4948000599) message] The system which generated this result transmitted reference range : <=125. The reference range was not used to interpret this result as normal/abnormal . RICH (test code = RICH) Biotin has been reported to cause a negative bias, interpret results relative to patient's use of biotin. Lab Interpretation Normal (test code = 47686-7) [facility]2022-08-19 15:31:44 Test Item Value Reference Range Interpretation Comments MAGNESIUM (test code = 8087644298) 1.5 mg/dL 1.7-2.4 L Lab Interpretation (test code = Abnormal 11644-8) [facility] METABOLIC PANEL (52240)2022-05-27 15:31:24 Test Item Value Reference Range Interpretation Comments NA (test code = 136 mmol/L 135-145 6686505206) K (test code = 3.4 mmol/L 3.5-5 L 5529640477) CL (test code = 95 mmol/L 98-108 L 0672384448) CO2 TOTAL (test code = 29 mmol/L 23-31 8899047047) AGAP (test code = 2-16 2347881836) BUN (test code = 18 mg/dL 7-23 8039855739) GLUCOSE (test code = 126 mg/dL 70-110 H 2911122806) CREATININE (test code = 0.89 mg/dL 0.6-1.25 7225131933) TOTAL BILI (test code = 1.1 mg/dL 0.1-1.8 0771537582) CALCIUM (test code = 9.3 mg/dL 8.6-10.6 8663784488) T PROTEIN (test code = 7.6 g/dL 6.3-8.2 7134446808) ALBUMIN (test code = 4.8 g/dL 3.5-5 9612519504) ALK PHOS (test code = 102 U/L 34-122 6531985579) ALTv (test code = 28 U/L 5-50 2-6) AST(SGOT) (test code = 33 U/L 13-40 7654758723) eGFR (test code = mL/min/1.73m2 1374231666) RICH (test code = RICH) Association of [...] tests). Lab Interpretation Abnormal (test code = 88394-4) [facility] 15:31:03 Test Item Value Reference Range Interpretation Comments LIPASE (test code = 3341343390) 83 U/L 0-220 Lab Interpretation (test code = Normal 14881-8) [facility] TylerProthrombin Time / [id number] 15:31:03 Test Item Value Reference Range Interpretation Comments PROTIME PATIENT (test See_Comment [Auto mated message] code = 5964-2) The system [employer] generated this result transmitted ref erence range: 12.0 - 1 4.7 Seconds. The re ference range was not u sed to interpret this result as normal/abnor mal. INR (test code = 6301-6) Nor mal INR <1.1; Warfarin Therap eutic range 2.0 to 3. 0 or 2.5 to 3.5, dep ending upon the indica tions. Lab Interpretation (test Normal code = 82330-8) [facility] WITH [id number] 15:22:04 Test Item Value Reference Range Interpretation Comments WBC (test code = See_Comment [Automated 6690-2) message] The sy stem which generated this result transmitted reference range : 4.20 - 10.70 10*3/?L. The reference range was not used to interpret this result as normal/abnormal . RBC (test code = See_Comment [Automated 899-8) message] The sy stem which generated this [...] RDW-SD (test code = 41.8 fL 38.5-51.6 58519-9) RDW-CV (test code = 13.2 % 12.1-15.4 788-0) PLT (test code = See_Comment [Automated 777-3) message] The sy stem which generated this result transmitted reference range : 150 - 328 10*3/ ?L. The reference r marianna was not used to interpret this result as normal/abnormal . MPV (test code = 9.6 fL 9.8-13 L 06812-5) NRBC/100 WBC (test See_Comment [Automat ed code = 4036673209) message] The system which generated this result transmitted reference range : 0.0 - 10.0 /100 WBCs. The refer ence range was not u sed to interpret th is result as normal/abnormal . NRBC x10^3 (test code See_Comment [Auto mated = 6509630547) message] The s ystem which generated this result transmitted reference range : 10*3/?L. The reference range was not used to interpret this result as normal/abnormal . GRAN MAT (NEUT) % 64.1 % (test code = 770-8) IMM GRAN % (test code 0.40 % = 5981333077) LYMPH % (test code = 21.6 % 736-9) MONO % (test code = 11.4 % 5905-5) EOS % (test code = 2.2 % 713-8) BASO % (test code = 0.3 % 706-2) GRAN MAT x10^3(ANC) 5.73 10*3/uL 1.99-6.95 (test code = 0929934045) IMM GRAN x10^3 (test 0.04 10*3/uL 0-0.06 code = 7103977195) LYMPH x10^3 (test code 1.93 10*3/uL 1.09-3.23 = 731-0) MONO x10^3 (test code 1.02 10*3/uL 0.36-1.02 = 742-7) EOS x10^3 (test code = 0.20 10*3/uL 0.06-0.53 711-2) BASO x10^3 (test code 0.03 10*3/uL 0.01-0.09 = 704-7) Lab Interpretation Abnormal (test code = 22605-6) [facility]"
[2023-08-02] MEDS ORDERED: KETOROLAC 30 MG/ML INJ ONE (14:55)
--- NOTE | 2023-08-02 16:07 | EDPHYS ---
Physician Documentation [facility] Name: Marcelo Ramirez Age: 58 yrs Sex: Male : 1965 Arrival Date: 08/02/2023 Time: 14:17 Bed 5 Private MD: ED Physician Daryl Mcgarry HPI: 08/02 14:22 This 58 yrs old Male presents to ER via Unassigned with complaints of Back jh7 Pain, body aches, malaise. 14:22 Patient reports body aches, feeling ill, and backache for the past 3 days. Denies any jh7 back injury. Denies any past medical problems. States "I feel like crud". Denies chest pain, shortness of breath, and fever.. Historical: - Allergies: 14:43 No Known Allergies; ll1 - PMHx: 14:43 COPD; Hypertensive disorder; ll1 - PSHx: 14:43 None; ll1 - Immunization history:: Adult Immunizations up to date. - Social history:: Smoking status: Patient denies any tobacco usage or history of. ROS: 14:22 Eyes: Negative for injury, pain, redness, and discharge, ENT: Negative for injury, jh7 pain, and discharge, Neck: Negative for injury, pain, and swelling, Cardiovascular: Negative for chest pain, palpitations, and edema, Respiratory: Negative for shortness of breath, cough, wheezing, and pleuritic chest pain, MS/Extremity: Negative for injury and deformity, Skin: Negative for injury, rash, and discoloration, Neuro: Negative for headache, weakness, numbness, tingling, and seizure, 14:22 Constitutional: Positive for body aches, malaise, Negative for fever, 14:22 Back: Positive for pain at rest, Negative for injury or acute deformity, decreased range of motion, 14:22 All other systems are negative, Exam: 14:22 Constitutional: This is a well developed, well nourished patient who is awake, alert, jh7 and in no acute distress. Head/Face: Normocephalic, atraumatic. Eyes: Pupils equal round and reactive to light, extra-ocular motions intact. Lids and lashes normal. Conjunctiva and sclera are non-icteric and not injected. Cornea within normal limits. Periorbital areas with no swelling, redness, or edema. Neck: Trachea midline, no thyromegaly or masses palpated, and no cervical lymphadenopathy. Supple, full range of motion without nuchal rigidity, or vertebral point tenderness. No Meningismus. Cardiovascular: Regular rate and rhythm with a normal S1 and S2. No gallops, murmurs, or rubs. Normal PMI, no JVD. No pulse deficits. Respiratory: Lungs have equal breath sounds bilaterally, clear to auscultation and percussion. No rales, rhonchi or wheezes noted. No increased work of breathing, no retractions or nasal flaring. Abdomen/GI: Soft, non-tender, with normal bowel sounds. No distension or tympany. No guarding or rebound. No evidence of tenderness throughout. Back: No spinal tenderness. No costovertebral tenderness. Full range of motion. Skin: Warm, dry with normal turgor. Normal color with no rashes, no lesions, and no evidence of cellulitis. MS/ Extremity: Pulses equal, no cyanosis. Neurovascular intact. Full, normal range of motion. Neuro: Awake and alert, GCS 15, oriented to person, place, time, and situation. Motor strength 5/5 in all extremities. Sensory grossly intact. Normal gait. Vital Signs: 14:40 BP 156 / 92; Pulse 70; Resp 18; Pulse Ox 99% on R/A; rs5 14:41 BP 168 / 94; Pulse 63; Resp 18; Temp 98; Pulse Ox 96% ; Weight 86.18 kg; Height 5 ft. 7 ll1 in. ; Pain 8/10; 15:30 BP 165 / 90; Pulse 67; Resp 17; Pulse Ox 99% ; rs5 16:55 BP 160 / 55; Pulse 62; Resp 18; Pulse Ox 99% on R/A; rs5 14:41 Body Mass Index 29.76 (86.18 kg, 170.18 cm) ll1 14:41 Pain Scale: Adult ll1 MDM: 14:22 Patient medically screened. [facility] 16:00 Differential diagnosis: arthritis, Fatigue sprain, Viral illness. Data reviewed: vital [facility] signs, nurses notes. I considered the following discharge prescriptions or medication management in the emergency department Medications were administered in the Emergency Department. See MAR. Care significantly affected by the following chronic conditions: Hypertension, Chronic Obstructive Pulmonary Disease. Counseling: I had a detailed discussion with the patient and/or guardian regarding the historical points, exam findings, and any diagnostic results supporting the discharge/admit diagnosis, to return to the emergency department if symptoms worsen or persist or if there are any questions or concerns that arise at home. Response to treatment: the patient's symptoms have markedly improved after treatment. 08/02 14:26 Order name: COVID-19 SARS RT PCR; Complete Time: 15:56 [facility] 08/02 14:26 Order name: Flu; Complete Time: 15:56 [facility] Administered Medications: 14:50 Drug: Ketorolac IM 60 mg IM once Route: IM; Site: left deltoid; rs5 15:20 Follow up: Response: No adverse reaction; Pain is decreased rs5 17:08 Not Given (Patient Refused): clonidine0.1 mg PO once rs5 Disposition Summary: 08/02/23 16:06 Discharge Ordered Notes: Location: Home [facility] Problem: new [facility] Symptoms: have improved [facility] Condition: Stable [facility] Diagnosis - Pain in thoracic spine [facility] - Neck pain [facility] Followup: [facility] - With: Private Physician - When: 2 - 3 days - Reason: Recheck today's complaints Discharge Instructions: - Discharge Summary Sheet [facility] - Acute Back Pain, Adult 7 - Thoracic Strain [facility] Forms: - Work release form ld1 - Medication Reconciliation Form [facility] - Thank You Letter [facility] - Patient Portal Instructions [facility] - Leadership Thank You Letter [facility] Prescriptions: - Naprosyn 500 mg Oral Tablet - take 1 tablet ORAL route 2 times per day take with food; 30 tablet; Refills: 0, [facility] Product Selection Permitted - Zanaflex 4 mg Oral Tablet - take 1 tablet ORAL route every 8 hours As needed; 20 tablet; Refills: 0, [facility] Product Selection Permitted Signatures: Dispatcher [employer] Aditi Mata RN RN ll1 Charity Myers FNP MONOGRAM OPERATOR 7 Alexandr Cueva RN RN rs5 Silvia Garduno RN RN tm6
--- NOTE | 2023-08-02 16:07 | ER ---
Nurse's Notes [facility] Name: Marcelo Ramirez Age: 58 yrs Sex: Male : 1965 Arrival Date: 08/02/2023 Time: 14:17 Bed 5 Private MD: Diagnosis: Pain in thoracic spine;Neck pain Presentation: 08/02 14:41 Chief complaint: Patient states: Back and neck pain for 3 days. Coronavirus screen: ll1 Client denies travel out of the [place] in the last 14 days. muscle pain, Client presents with at least one sign or symptom that may indicate coronavirus-19. Standard/surgical mask placed on the client. Ebola Screen: Patient denies travel to an Ebola-affected area in the 21 days before illness onset. Initial Sepsis Screen: Does the patient meet any 2 criteria? No. Patient's initial sepsis screen is negative. Does the patient have a suspected source of infection? Yes: Bone or joint infection. Risk Assessment: Do you want to hurt yourself or someone else? Patient reports no desire to harm self or others. Onset of symptoms was July 31, 2023. 14:41 Method Of Arrival: Ambulatory [facility] 14:41 Acuity: BROOKE 4 ll1 Historical: - Allergies: 14:43 No Known Allergies; ll1 - PMHx: 14:43 COPD; Hypertensive disorder; ll1 - PSHx: 14:43 None; ll1 - Immunization history:: Adult Immunizations up to date. - Social history:: Smoking status: Patient denies any tobacco usage or history of. Screenin:30 [facility] ED Fall Risk Assessment (Adult) History of falling in the last 3 months, rs5 including since admission No falls in past 3 months (0 pts) Confusion or Disorientation No (0 pts) Intoxicated or Sedated No (0 pts) Impaired Gait No (0 pts) Mobility Assist Device Used No (0 pt) Altered Elimination No (0 pt) Score/Fall Risk Level 0 - 2 = Low Risk Oriented to surroundings, Maintained a safe environment. 14:30 Abuse screen: Denies threats or abuse. Nutritional screening: No deficits noted. rs5 Tuberculosis screening: No symptoms or risk factors identified. Assessment: 14:30 General: Appears in no apparent distress. uncomfortable, Behavior is calm, cooperative. rs5 Pain: Complains of pain in lower back Pain radiates to neck Pain currently is 7 out of 10 on a pain scale. Quality of pain is described as aching, Pain began 1 day ago. Is continuous. Neuro: Level of Consciousness is awake, alert, obeys commands, Oriented to person, place, time, situation. 14:30 Cardiovascular: Heart tones S1 S2 present Rhythm is regular. Respiratory: Airway is rs5 patent Respiratory effort is even, unlabored, Respiratory pattern is regular, symmetrical, Breath sounds are clear bilaterally. GI: Abdomen is round non-distended, Bowel sounds present X 4 quads. Abd is soft and non tender X 4 quads. : No signs and/or symptoms were reported regarding the genitourinary system. EENT: No signs and/or symptoms were reported regarding the EENT system. Derm: No signs and/or symptoms reported regarding the dermatologic system. Musculoskeletal: Range of motion: intact in all extremities. 15:20 Reassessment: Patient states feeling better. Patient states symptoms have improved. rs5 Pain: Complains of pain in lower back Pain radiates to neck Pain currently is 3 out of 10 on a pain scale. Quality of pain is described as aching, Is continuous. Neuro: 15:20 Cardiovascular: Rhythm is regular. Respiratory: Respiratory effort is even, unlabored, rs5 Respiratory pattern is regular, symmetrical. 16:02 Reassessment: No changes from previously documented assessment. rs5 16:55 Reassessment: Patient and/or family updated on plan of care and expected duration. Pain rs5 level reassessed. Patient is alert, oriented x 3, equal unlabored respirations, skin warm/dry/pink. Vital Signs: 14:40 BP 156 / 92; Pulse 70; Resp 18; Pulse Ox 99% on R/A; rs5 14:41 BP 168 / 94; Pulse 63; Resp 18; Temp 98; Pulse Ox 96% ; Weight 86.18 kg; Height 5 ft. 7 ll1 in. ; Pain 8/10; 15:30 BP 165 / 90; Pulse 67; Resp 17; Pulse Ox 99% ; rs5 16:55 BP 160 / 55; Pulse 62; Resp 18; Pulse Ox 99% on R/A; rs5 14:41 Body Mass Index 29.76 (86.18 kg, 170.18 cm) ll1 14:41 Pain Scale: Adult ll1 ED Course: 14:20 Patient arrived in ED. mr 14:22 LouisCharity, [facility] 14:22 Daryl Mcgarry MD is Attending Physician. [facility] 14:30 Patient has correct armband on for positive identification. Placed in gown. Bed in low rs5 position. Side rails up X2. 14:41 Alexandr Cueva, RN is Primary Nurse. rs5 14:43 Triage completed. 1 14:43 Arm band placed on. 1 17:00 No provider procedures requiring assistance completed. rs5 17:00 IV discontinued, intact, bleeding controlled, No redness/swelling at site. Pressure rs5 dressing applied. Administered Medications: 14:50 Drug: Ketorolac IM 60 mg IM once Route: IM; Site: left deltoid; rs5 15:20 Follow up: Response: No adverse reaction; Pain is decreased rs5 17:08 Not Given (Patient Refused): clonidine0.1 mg PO once rs5 Medication: 17:00 VIS not applicable for this client. rs5 Outcome: 16:06 Discharge ordered by . [facility] 17:00 Discharged to home ambulatory, rs5 17:00 Condition: stable 17:00 Discharge instructions given to patient, Instructed on discharge instructions, follow up and referral plans. Demonstrated understanding of instructions, follow-up care, 17:06 Patient left the ED. [facility] Signatures: Lorrie Cohen, Reg Reg Aditi Chaidez, RN RN [facility] Charity Myers FNP BLUEPRINT CUTTER [facility] Alexandr Cueva, RN RN rs5 Silvia Garduno RN RN tm6 Corrections: (The following items were deleted from the chart) 17:04 16:35 Reassessment: No changes from previously documented assessment. rs5 rs5
[2023-08-02] MEDS ORDERED: cloNIDine HCL 0.1 MG TAB ONE (17:05)
[2023-08-03 16:00] VITALS: BP 165/90; TEMP 98; O2SAT 99
== END 2023-08-02 17:06 | disposition home or self-care (01) ==
LOC: ER 14:17
DX: M54.6 Pain in thoracic spine (principal); M54.2 Cervicalgia; Z20.822 Contact with and (suspected) exposure to COVID-19
CPT/HCPCS: 87635; 87804

== ENCOUNTER 2024-08-07 19:14 | Emergency (ER) | payer BC, SELFPAY ==
--- NOTE | 2024-08-07 21:01 | EDPHYS ---
Physician Documentation [facility] Name: Marcelo Ramirez Age: 59 yrs Sex: Male : 1965 Arrival Date: 08/07/2024 Time: 19:14 Bed IW1 Private MD: ED Physician Sridhar Villa HPI: 08/07 20:59 This 59 yrs old Male presents to ER via Ambulatory with complaints of Skin kb Sore(s). 20:59 Pt is a 59 year old male who presents for redness and swelling of left arm that started kb 4 days ago. States it has been tender to touch. Denies fever. . Historical: - Allergies: 20:07 No Known Allergies; cm10 - PMHx: 20:07 COPD; Hypertensive disorder; cm10 - Immunization history:: Adult Immunizations up to date. - Infectious Disease History:: Denies. - Social history:: Smoking status: Patient denies any tobacco usage or history of. ROS: 20:59 Constitutional: As per HPI kb Exam: 20:58 Constitutional: This is a well developed, well nourished patient who is awake, alert, kb and in no acute distress. Head/Face: Normocephalic, atraumatic. ENT: Moist Mucous membranes Cardiovascular: Regular rate Respiratory: Respirations even and unlabored. No increased work of breathing. Talking in full sentences MS/ Extremity: Pulses equal, no cyanosis. Neurovascular intact. Full, normal range of motion. Neuro: Awake and alert, GCS 15, oriented to person, place, time, and situation. 20:58 Skin: cellulitis, that is mild, on the palmar aspect of left forearm, Vital Signs: 20:06 BP 162 / 99; Pulse 77; Resp 18; Temp 97.4; Pulse Ox 100% ; Weight 86.18 kg; Height 5 cm10 ft. 7 in. ; Pain 4/10; 20:06 Body Mass Index 29.76 (86.18 kg, 170.18 cm) cm10 20:06 Pain Scale: Adult cm10 MDM: 20:52 Medical Screening Exam initiated kb 20:59 Differential diagnosis: abscess, cellulitis. Data reviewed: vital signs, nurses notes. kb Counseling: I had a detailed discussion with the patient and/or guardian regarding the historical points, exam findings, and any diagnostic results supporting the discharge/admit diagnosis, the need for outpatient follow up, a family practitioner, to return to the emergency department if symptoms worsen or persist or if there are any questions or concerns that arise at home. 21:00 ED course: No drainable abscess appreciated. kb Administered Medications: 21:11 Drug: Trimethoprim-Sulfamethoxazole PO (160 mg-800 mg (DS) 1 tablet PO once Route: PO; cm10 21:12 Follow up: Response: Medication administered at discharge. cm10 21:11 Drug: Cephalexin PO 500 mg PO once Route: PO; cm10 21:11 Follow up: Response: Medication administered at discharge. cm10 Disposition Summary: 08/07/24 21:01 Discharge Ordered Notes: Location: Home kb Condition: Stable kb Diagnosis - Cellulitis of left upper limb kb Followup: kb - With: Emergency Department - When: As needed - Reason: Worsening of condition Followup: kb - With: Private Physician - When: 2 - 3 days - Reason: Recheck today's complaints, Continuance of care, Re-evaluation by your physician Discharge Instructions: - Discharge Summary Sheet kb - Cellulitis, Adult, [id number] kb Forms: - Medication Reconciliation Form kb - Antibiotic Education kb - Prescription Opioid Use kb - Patient Portal Instructions kb - Leadership Thank You Letter kb Prescriptions: - Cephalexin 500 mg Oral Capsule - take 1 capsule ORAL route every 8 hours for 10 days; 30 capsule; Refills: 0, kb Product Selection Permitted - Bactrim DS 800-160 mg Oral Tablet - take 1 tablet ORAL route every 12 hours for 7 days; 14 tablet; Refills: 0, kb Product Selection Permitted Signatures: Nichole Mcnamara FNP-C FNP-Noelle Gorman, RN RN cm10
--- NOTE | 2024-08-07 21:01 | ER ---
Nurse's Notes [facility] Name: Marcelo Ramirez Age: 59 yrs Sex: Male : 1965 Arrival Date: 08/07/2024 Time: 19:14 Bed IW1 Private MD: Diagnosis: Cellulitis of left upper limb Presentation: 08/07 20:06 Chief complaint: Patient states: Wound to left arm onset 4 days ago. Pt has noted cm10 redness and swelling to his left arm. Coronavirus screen: Client denies travel out of the [place] in the last 14 days. Ebola Screen: Patient denies travel to an Ebola-affected area in the 21 days before illness onset. No symptoms or risks identified at this time. Initial Sepsis Screen: Does the patient meet any 2 criteria? No. Patient's initial sepsis screen is negative. Does the patient have a suspected source of infection? No. Patient's initial sepsis screen is negative. Risk Assessment: Do you want to hurt yourself or someone else? Patient reports no desire to harm self or others. Onset of symptoms was August 03, 2024. 20:06 Method Of Arrival: Ambulatory cm10 20:06 Acuity: BROOKE 4 cm10 Triage Assessment: 20:08 General: Appears in no apparent distress. uncomfortable, Behavior is calm, cooperative. cm10 Neuro: No deficits noted. Level of Consciousness is awake, alert, obeys commands, Oriented to person, place, time, situation, Appropriate for age. Derm: Wound noted palmar aspect of left forearm. 21:12 Pain: Complains of pain in palmar aspect of left forearm. cm10 Historical: - Allergies: 20:07 No Known Allergies; cm10 - PMHx: 20:07 COPD; Hypertensive disorder; cm10 - Immunization history:: Adult Immunizations up to date. - Infectious Disease History:: Denies. - Social history:: Smoking status: Patient denies any tobacco usage or history of. Screenin:02 [facility] ED Fall Risk Assessment (Adult) History of falling in the last 3 months, cm10 including since admission No falls in past 3 months (0 pts) Confusion or Disorientation No (0 pts) Intoxicated or Sedated No (0 pts) Impaired Gait No (0 pts) Mobility Assist Device Used No (0 pt) Altered Elimination No (0 pt) Score/Fall Risk Level 0 - 2 = Low Risk Oriented to surroundings, Maintained a safe environment, Hourly rounding (assess needs \T\ fall precautionary measures) done. Abuse screen: Denies threats or abuse. Denies injuries from another. Nutritional screening: No deficits noted. Tuberculosis screening: No symptoms or risk factors identified. Assessment: 21:02 Reassessment: Patient appears in no apparent distress at this time. No changes from cm10 previously documented assessment. Patient and/or family updated on plan of care and expected duration. Pain level reassessed. Patient is alert, oriented x 3, equal unlabored respirations, skin warm/dry/pink. Vital Signs: 20:06 BP 162 / 99; Pulse 77; Resp 18; Temp 97.4; Pulse Ox 100% ; Weight 86.18 kg; Height 5 cm10 ft. 7 in. ; Pain 4/10; 20:06 Body Mass Index 29.76 (86.18 kg, 170.18 cm) cm10 20:06 Pain Scale: Adult cm10 ED Course: 19:18 Patient arrived in ED. gm2 20:07 Triage completed. cm10 20:08 Arm band placed on right wrist. Patient placed in waiting room. cm10 20:38 Nichole Mcnamara FNP-C is PHCP. kb 20:38 Sridhar Villa MD is Attending Physician. kb 21:02 Patient has correct armband on for positive identification. Provided Education on: cm10 Follow-up instructions. Cardiac monitoring not applicable on this patient. 21:02 No provider procedures requiring assistance completed. Patient did not have IV access cm10 during this emergency room visit. Administered Medications: 21:11 Drug: Trimethoprim-Sulfamethoxazole PO (160 mg-800 mg (DS) 1 tablet PO once Route: PO; cm10 21:12 Follow up: Response: Medication administered at discharge. cm10 21:11 Drug: Cephalexin PO 500 mg PO once Route: PO; cm10 21:11 Follow up: Response: Medication administered at discharge. cm10 Medication: 21:02 VIS not applicable for this client. cm10 Outcome: 21:01 Discharge ordered by . kb 21:03 Discharged to home ambulatory, cm10 21:03 Condition: good 21:03 Discharge instructions given to patient, Instructed on discharge instructions, follow up and referral plans. medication usage, Demonstrated understanding of instructions, follow-up care, medications, Prescriptions given X 2, 21:12 Patient left the ED. cm10 Signatures: Nichole Mcnamara FNP-C FNP-Ckb Martinez, Clarissa, RN RN cm10 Noy Montes gm2 Corrections: (The following items were deleted from the chart) 21:02 21:02 Pain: cm10 cm10
[2024-08-07] MEDS ORDERED: CEPHALEXIN 250 MG CAP ONE (21:08)
[2024-08-07] MEDS ORDERED: SMZ./TMP. 800/160 MG TABLET ONE (21:08)
[2024-08-07 21:22] VITALS: BP 162/99; TEMP 97.4; O2SAT 100
== END 2024-08-07 21:12 | disposition home or self-care (01) ==
LOC: ER 19:14
DX: L03.114 Cellulitis of left upper limb (principal)
CPT/HCPCS: 99283